=== PATIENT | male | born 1965 | race Two or more races ===

== ENCOUNTER 2024-09-30 21:40 | Emergency (ER) | payer MEDICAID, OTHER ==
[~2024-09-30] VITALS: Ht 188 cm; Wt 79.6 kg
--- NOTE | 2024-09-30 22:19 | ED.PDOC ---
History of Present Illness(SKN HPI Comments 59-year-old male who came to ER for wound check. Patient states he was bitten by a brown recluse spider 3 years ago at his right lower leg. Patient underwent skin grafting at [facility]. Nine months ago, patient accidentally tripped and fell, and he ripped out his skin graft lower leg. Noted gaping wound at his right lower leg that is being attended to by a home health care nurse. States the [facility] nurse hasnt come for the past 2 days and he has been experiencing pain at is wound site, with foul smelling discharge. Chief Complaint: Wound Check Time Seen by MD: 22:18 History of Present Illness: Nurses Notes Allergies: Coded Allergies: NO KNOWN ALLERGIES (Unverified , 09/30/24) Home Meds Active Scripts Mupirocin Calcium (Topical) (MUPIROCIN) 2 % Cre, 2 % EX BID for 20 Days, #30 CRE 3 Refills Prov:RADHA MESA MD 09/30/24 Doxycycline Hyclate (DOXYCYCLINE HYCLATE) 100 Mg Tab, 1 TAB PO BID for 10 Days, #20 TAB Prov:RADHA MESA MD 09/30/24 Information Source: Patient Mode of Arrival: Ambulatory Severity: Moderate Timing: Weeks Duration: Since onset Prehospital treatment: None Location: Extremities (right lower leg) Mechanism: Spider Occurence: Outdoors Condition of Object: Contaminated, Dirty Associated Signs and Symptoms: Redness, Swelling, Pus Past Medical History PAST MEDICAL HISTORY: Denies Surgical History: Denies all surgeries Surgical History (Other): Skin Graft right lower leg Family History Family History: Reviewed,noncontributory to illness Social History Smoker: Non-Smoker Alcohol: Denies ETOH Use Drugs: Denies Drug Use Lives In: Assisted Care Constitutional: denies: chills, diaphoresis, fatigue, fever, malaise, sweats, weakness, others EENTM: denies: blurred vision, double vision, ear bleeding, ear discharge, ear drainage, ear pain, ear ringing, eye pain, eye redness, hearing loss, mouth pain, mouth swelling, nasal discharge, nose bleeding, nose congestion, nose pain, photophobia, tearing, throat pain, throat swelling, voice changes, others Respiratory: denies: cough, hemoptysis, orthopnea, SOB at rest, shortness of breath, SOB with excertion, stridor, wheezing, others Cardiovascular: denies: chest pain, dizzy spells, diaphoresis, Dyspnea on exertion, edema, irregular heart beat, left arm pain, lightheadedness, palpitations, PND, syncope, others Gastrointestinal: denies: abdomen distended, abdominal pain, blood streaked bowels, constipated, diarrhea, dysphagia, difficulty swallowing, hematemesis, melena, nausea, poor appetite, poor fluid intake, rectal bleeding, rectal pain, vomiting, others Genitourinary: denies: burning, dysuria, flank pain, frequency, hematuria, incontinence, penile discharge, penile sore, pain, testicle pain, testicle swelling, urgency, others Neurological: denies: dizziness, fainting, headache, left sided numbness, left sided weakness, numbness, paresthesia, pre-existing deficit, right sided numbness, right sided weakness, seizure, speech problems, tingling, tremors, weakness, others Musculoskeletal: denies: back pain, gout, joint pain, joint swelling, muscle pain, muscle stiffness, neck pain, others Integumetry: reports: wounds (right lower leg); denies: bruises, change in color, change in hair/nails, dryness, laceration, lesions, lumps, rash, others Allergic/Immunocompromised: denies: Difficulty Healing, Frequent Infections, Hives, Itching, others Hematologic/Lymphatic: denies: anemia, blood clots, easy bleeding, easy bruising, swollen glands, others Endocrine: denies: excessive hunger, excessive sweating, excessive thirst, excessive urination, flushing, intolerance to cold, intolerance to heat, unexplained weight gain, unexplained weight loss, others Psychiatric: denies: anxiety, bipolar disorder, depression, hopeless, panic disorder, schizophrenia, sleepless, suicidal, others Physical Exam General Appearance: No Apparent Distress, Normal HEENT: Normal ENT Inspection, Pharynx Normal, TMs Normal Neck: Full Range of Motion, Non-Tender, Normal, Normal Inspection Respiratory: Chest Non-Tender, Lungs Clear, No Accessory Muscle Use, No Respiratory Distress, Normal Breath Sounds Cardiovascular: No Edema, No JVD, No Murmur, No Gallop, Normal Peripheral Pulses, Regular Rate/Rhythm Breast Exam: Deferred Gastrointestinal: No Organomegaly, Non Tender, No Pulsatile Mass, Normal Bowel Sounds, Soft Genitalia: Deferred Pelvic: Deferred Rectal: Deferred Extremities: No calf tenderness, Normal capillary refill, Normal inspection, Normal range of motion, Non-tender, No pedal edema, Other (open wound right lower extremity, foul smelling with discharge) Musculoskeletal : Apperance: Normal Neurologic: Alert, magnetometer operator II-XII nml as Tested, No Motor Deficits, Normal Affect, Normal Mood, No Sensory Deficits Cerebellar Function: Normal Reflexes: Normal Skin: Dry, Normal Color, Warm Lymphatic: No Adenopathy Was a procedure done? Was a procedure done?: No Differential Diagnosis (INTG) Differential Diagnosis: Cellulitis, Hematoma, Insect Envenomation Abscess: Abscess, Bacteremia, Cellulitis X-Ray, Labs, Meds, VS Vital Signs Date Time Temp Pulse Resp B/P (MAP) Pulse Ox O2 Delivery O2 Flow Rate FiO2 10/01/24 00:24 98.6 109 19 152/86 (108) 97 98.6 09/30/24 21:57 99.3 95 16 135/88 (104) 98 99.3 Lab Test 09/30/24 22:30 Range/Units White Blood Count 10.3 4.4-10.8 10^3/uL Red Blood Count 5.59 4.5-5.90 10^6/uL Hemoglobin 16.9 13.5-17.5 g/dL Hematocrit 50.4 41.0-53.0 % Mean Corpuscular Volume 90.2 80.0-100.0 fL Mean Corpuscular Hemoglobin 30.2 28.0-32.0 pg Mean Corpuscular Hemoglobin Concent 33.5 32.0-36.0 g/dL Red Cell Distribution Width 14.0 11.8-14.3 % Platelet Count 285 140-450 10^3/uL Mean Platelet Volume 8.4 6.9-10.8 fL Neutrophils (%) (Auto) 63.9 37.0-80.0 % Lymphocytes (%) (Auto) 23.8 10.0-50.0 % Monocytes (%) (Auto) 9.5 0.0-12.0 % Eosinophils (%) (Auto) 2.3 0.0-7.0 % Basophils (%) (Auto) 0.5 0.0-2.0 % Neutrophils # (Auto) 6.6 1.6-8.6 10 ^3/uL Lymphocytes # (Auto) 2.5 0.4-5.4 10 ^3/uL Monocytes # (Auto) 1.0 0-1.3 10 ^3/uL Eosinophils # (Auto) 0.2 0-0.8 10 ^3/uL Basophils # (Auto) 0 0-0.2 10 ^3/uL Nucleated Red Blood Cells 0.0 % Sodium Level 137 136-145 mmol/L Potassium Level 4.0 3.5-5.1 mmol/L Chloride Level 108 H 98-107 mmol/L Carbon Dioxide Level 20 20-31 mmol/L Anion Gap 9 5-15 Blood Urea Nitrogen 13 9-23 mg/dL Creatinine 0.90 0.700-1.30 mg/dL Glomerular Filtration Rate Calc 99 >90 mL/min BUN/Creatinine Ratio 14.4 10.0-20.0 Serum Glucose 110 H 74-106 mg/dL Lactic Acid Level 1.5 0.4-2.0 mmol/L Calcium Level 10.2 8.7-10.4 mg/dL Total Bilirubin 0.4 0.2-1.0 mg/dL Aspartate Amino Transferase (AST) 22 13-40 U/L Alanine Aminotransferase (ALT) 33 7-40 U/L Alkaline Phosphatase 125 H 46-116 U/L Total Protein 8.2 5.7-8.2 g/dL Albumin 4.9 H 3.2-4.8 g/dL Current Medications Medications (Trade) Dose Ordered Sig/Bro Route Start Time Stop Time Status Last Admin Cefazolin Sodium/ Dextrose 50 ml @ 50 mls/hr ONCE ONCE IV 09/30/24 22:15 09/30/24 23:14 DC 09/30/24 23:50 PROCEDURE(s): RTBFB - R TIB FIB XRAY CLINICAL INDICATION: open wound / infection right lower leg TECHNIQUE: XY R TIB FIB XRAY Comparison: None FINDINGS: No osseous or joint abnormality identified with no fracture or dislocation. IMPRESSION: No abnormality demonstrated. Time of 1ST Reevaluation: 22:09 Reevaluation 1ST: Unchanged Patient Education/Counseling: Diagnosis, Treatment Family Education/Counseling: No Family Present Departure 1 Departure Time of Disposition: 00:10 Impression: Primary Impression: Cellulitis Additional Impression: Ulcer of right lower leg Disposition: HOME / SELF CARE / HOMELESS Condition: Stable e-Prescriptions Mupirocin Calcium (Topical) (MUPIROCIN) 2 % Cre 2 % EX BID for 20 Days, #30 CRE 3 Refills Prov: RADHA MESA MD 09/30/24 Doxycycline Hyclate (DOXYCYCLINE HYCLATE) 100 Mg Tab 1 TAB PO BID for 10 Days, #20 TAB Prov: RADHA MESA MD 09/30/24 Discharged With: Self Critical Care Note Critical Care Time?: No Stability Stability form required: No Heart Score Heart Score: Heart Score Response (Comments) Value History N/A 0 EKG N/A 0 Age N/A 0 Risk Factors N/A 0 Troponin N/A 0 Total 0 I personally scribed for RADHA MESA MD ([email or web address]) on 09/30/24 at 22:19. Electronically submitted by Joselito Lawson ([email or web address]). I personally scribed for RADHA MESA MD ([email or web address]) on 09/30/24 at 23:02. Electronically submitted by Joselito Lawson ([email or web address]). RADHA MESA MD Sep 30, 2024 22:19
--- NOTE | 2024-09-30 22:36 | DVH ---
CLINICAL INDICATION: open wound / infection right lower leg TECHNIQUE: XY R TIB FIB XRAY Comparison: None FINDINGS: No osseous or joint abnormality identified with no fracture or dislocation. IMPRESSION: No abnormality demonstrated.
[2024-09-30 22:57] LABS: Alanine Aminotransferase 33 U/L (7-40); Anion Gap 9 (5-15); Aspartate Aminotransferase 22 U/L (13-40); BUN/Creatinine Ratio 14.4 (10.0-20.0); Blood Urea Nitrogen 13 mg/dL (9-23); Calcium 10.2 mg/dL (8.7-10.4); Carbon Dioxide 20 mmol/L (20-31); Sodium 137 mmol/L (136-145); Total Protein 8.2 g/dL (5.7-8.2)
[2024-09-30 22:58] LABS: Bilirubin, Total 0.4 mg/dL (0.2-1.0)
[2024-09-30 23:00] LABS: Albumin 4.9 g/dL (3.2-4.8); Alkaline Phosphatase 125 U/L (46-116); Chloride 108 mmol/L (98-107); Glucose 110 mg/dL (74-106)
[2024-09-30 23:05] LABS: Basophils # (auto) 0 10 ^3/uL (0-0.2); Basophils % (auto) 0.5 % (0.0-2.0); Eosinophils # (auto) 0.2 10 ^3/uL (0-0.8); Eosinophils % (auto) 2.3 % (0.0-7.0); Hematocrit 50.4 % (41.0-53.0); Hemoglobin 16.9 g/dL (13.5-17.5); Lymphocytes # (auto) 2.5 10 ^3/uL (0.4-5.4); Lymphocytes % (auto) 23.8 % (10.0-50.0); Mean Corpuscular Hemoglobin 30.2 pg (28.0-32.0); Mean Corpuscular Hgb Conc. 33.5 g/dL (32.0-36.0); Mean Corpuscular Volume 90.2 fL (80.0-100.0); Monocytes % (auto) 9.5 % (0.0-12.0); Neutrophils # (auto) 6.6 10 ^3/uL (1.6-8.6); Neutrophils % (auto) 63.9 % (37.0-80.0); Platelet Count (auto) 285 10^3/uL (140-450); Red Blood Cells 5.59 10^6/uL (4.5-5.90); White Blood Cell 10.3 10^3/uL (4.4-10.8)
[2024-09-30] MEDS ORDERED: DOXY-286 PO (23:41)
[2024-09-30] MEDS ORDERED: MUPI2CRE17 EX (23:41)
[2024-09-30] MEDS: ceFAZolin 2 GM/D5W50ml 50 ML IV ONE (23:50)
[2024-10-01 00:24] VITALS: BP 152/86; PULSE 109; RESP 19; TEMP 98.6; O2SAT 97
== END 2024-10-01 00:49 | disposition home or self-care (01) ==
LOC: ER 21:45
DX: L03.115 Cellulitis of right lower limb (principal); L97.819 Non-pressure chronic ulcer of other part of right lower leg with unspecified severity; Z98.890 Other specified postprocedural states
CPT/HCPCS: 36415; 73590; 80053; 83605; 85025; 87040; 96365; 99284; J0690

== ENCOUNTER 2025-04-22 19:47 | Inpatient (IN) | payer MEDICAID ==
[~2025-04-22] VITALS: Ht 188 cm; Wt 68.2 kg
[~2025-04-22 19:47] MED LIST: DOXY-286 PO; MUPI2CRE17 EX
--- NOTE | 2025-04-22 21:20 | ED.PDOC ---
History of Present Illness(SKN HPI Comments Pt presents with cc of wound to his right ankle. Pt reports he has had the wound for 3 years, but over brendon past 1 week the wound has opened up and is draining. Patient states did have a wound nurse follow up proximally three months ago however he is not living at that location anymore Pt denies any n/v/f. Denies any significant medical history Chief Complaint: Wound Check Time Seen by MD: 20:01 History of Present Illness: Nurses Notes, Medications, Allergies Allergies: Coded Allergies: NO KNOWN ALLERGIES (Unverified , 09/30/24) Home Meds Active Scripts Mupirocin Calcium (Topical) (MUPIROCIN) 2 % Cre, 2 % EX BID for 20 Days, #30 CRE 3 Refills Prov:RADHA MESA MD 09/30/24 Doxycycline Hyclate (DOXYCYCLINE HYCLATE) 100 Mg Tab, 1 TAB PO BID for 10 Days, #20 TAB Prov:RADHA MESA MD 09/30/24 Information Source: Patient Mode of Arrival: Ambulatory Past Medical History PAST MEDICAL HISTORY: Denies Surgical History: Denies all surgeries Family History Family History: Reviewed,noncontributory to illness Social History Smoker: Non-Smoker Alcohol: Denies ETOH Use Drugs: Denies Drug Use Lives In: Assisted Care All Other Systems: Reviewed and Negative (See HPI) Physical Exam General Appearance: No Apparent Distress, Normal HEENT: Pharynx Normal Neck: Full Range of Motion, Non-Tender Respiratory: Lungs Clear, No Respiratory Distress, Normal Breath Sounds Cardiovascular: No Edema, No JVD, No Murmur, No Gallop, Normal Peripheral Pulses, Regular Rate/Rhythm Breast Exam: Deferred Gastrointestinal: No Organomegaly, Non Tender, No Pulsatile Mass, Normal Bowel Sounds, Soft Genitalia: Deferred Pelvic: Deferred Rectal: Deferred Extremities: Normal capillary refill, Pedal edema (Nonpitting right foot) Musculoskeletal : Apperance: Normal Neurologic: Alert, No Motor Deficits, Normal Affect, Normal Mood, No Sensory Deficits Cerebellar Function: Normal Reflexes: NOT DONE Skin: Dry, Normal Color, Warm, Wounds (Approximate 1.5 in x 1.5 in ulcerated wound with green drainage and fall odor surrounding erythema and edema strength sensory and motion intact positive pedal pulse) Lymphatic: No Adenopathy Was a procedure done? Was a procedure done?: No Differential Diagnosis (INTG) Differential Diagnosis: Cellulitis, Puncture Wound Differential Diagnosis: Abscess X-Ray, Labs, Meds, VS Vital Signs Date Time Temp Pulse Resp B/P (MAP) Pulse Ox O2 Delivery O2 Flow Rate FiO2 04/22/25 23:49 98.4 90 18 138/82 (100) 95 98.4 04/22/25 22:59 98.6 91 21 147/96 (113) 96 98.6 04/22/25 22:59 91 21 96 Room Air* 0 21 04/22/25 19:48 98.0 98 18 140/110 95 98.0 Lab Test 04/22/25 22:25 04/22/25 21:35 Range/Units Lactic Acid Level 2.8 *H 0.4-2.0 mmol/L White Blood Count 8.4 4.4-10.8 10^3/uL Red Blood Count 5.20 4.5-5.90 10^6/uL Hemoglobin 15.5 13.5-17.5 g/dL Hematocrit 46.2 41.0-53.0 % Mean Corpuscular Volume 88.9 80.0-100.0 fL Mean Corpuscular Hemoglobin 29.8 28.0-32.0 pg Mean Corpuscular Hemoglobin Concent 33.5 32.0-36.0 g/dL Red Cell Distribution Width 15.1 H 11.8-14.3 % Platelet Count 280 140-450 10^3/uL Mean Platelet Volume 7.6 6.9-10.8 fL Neutrophils (%) (Auto) 71.3 37.0-80.0 % Lymphocytes (%) (Auto) 14.8 10.0-50.0 % Monocytes (%) (Auto) 12.0 0.0-12.0 % Eosinophils (%) (Auto) 1.3 0.0-7.0 % Basophils (%) (Auto) 0.6 0.0-2.0 % Neutrophils # (Auto) 6.0 1.6-8.6 10 ^3/uL Lymphocytes # (Auto) 1.2 0.4-5.4 10 ^3/uL Monocytes # (Auto) 1.0 0-1.3 10 ^3/uL Eosinophils # (Auto) 0.1 0-0.8 10 ^3/uL Basophils # (Auto) 0 0-0.2 10 ^3/uL Nucleated Red Blood Cells 0.1 % D-Dimer, Quantitative 6.72 H 0.0-0.49 mg/L FEU Sodium Level 141 136-145 mmol/L Potassium Level 4.3 3.5-5.1 mmol/L Chloride Level 103 98-107 mmol/L Carbon Dioxide Level 28 20-31 mmol/L Anion Gap 10 5-15 Blood Urea Nitrogen 8 L 9-23 mg/dL Creatinine 0.75 0.700-1.30 mg/dL Glomerular Filtration Rate Calc 105 >90 mL/min BUN/Creatinine Ratio 10.7 10.0-20.0 Serum Glucose 97 74-106 mg/dL Calcium Level 9.8 8.7-10.4 mg/dL Magnesium Level 2.0 1.6-2.6 mg/dL Total Bilirubin 0.3 0.2-1.0 mg/dL Aspartate Amino Transferase (AST) 22 13-40 U/L Alanine Aminotransferase (ALT) 19 7-40 U/L Alkaline Phosphatase 91 46-116 U/L C-Reactive Protein High Sensitivity 8.67 H <1.0 mg/dL Total Protein 7.6 5.7-8.2 g/dL Albumin 4.2 3.2-4.8 g/dL Current Medications Medications (Trade) Dose Ordered Sig/Bro Route Start Time Stop Time Status Last Admin Vancomycin HCl 250 ml @ 250 mls/hr ONCE ONCE IV 04/22/25 21:30 04/22/25 22:29 DC 04/22/25 23:58 Oxycodone/ Acetaminophen (Percocet 5/ 325MG Tablet) 2 tab ONCE ONCE PO 04/22/25 21:30 04/22/25 21:31 DC 04/22/25 22:35 Clindamycin Phosphate 50 ml @ 50 mls/hr ONCE ONCE IV 04/22/25 22:15 04/22/25 23:14 DC 04/22/25 22:49 Sodium Chloride 1,000 ml @ 1,000 mls/hr Q1H ONCE IV 04/22/25 22:30 04/22/25 23:29 DC 04/22/25 22:49 Ceftriaxone Sodium 50 ml @ 100 mls/hr ONCE ONCE IV 04/22/25 23:45 04/23/25 00:17 DC 04/23/25 01:02 Clopidogrel Bisulfate (Plavix) 75 mg ONCE ONCE PO 04/22/25 23:45 04/23/25 00:18 DC 04/23/25 00:47 Losartan Potassium (Cozaar Tablet) 25 mg ONCE ONCE PO 04/22/25 23:45 04/23/25 00:18 DC 04/23/25 00:48 X-Ray, Labs, Meds, VS Comment Patient placed for admission for IV antibiotics and wound care. Time of 1ST Reevaluation: 20:01 Reevaluation 1ST: Unchanged Time of 2ND Reevaluation: 21:20 Reevaluation 2ND: Unchanged Patient Education/Counseling: Diagnosis, Treatment, Need For Follow Up Family Education/Counseling: No Family Present SEPSIS Sepsis Screen Date sepsis recognized/suspect: Apr 22, 2025 Time Sepsis recognized/suspect: 1950 Recent Procedure: No On Antibiotic Therapy: No Respiratory Rate >20: No Heart Rate >90: Yes Temp<36 C (96.8 F) or >38.3 C: No SBP <90 or MAP <65 mmHG: No New Acute Mental Status Change: No Is the patient on CPAP, BIPAP,: No Physician Orders Heplock Iv (04/22/25 ) Blood Culture (04/22/25 21:50) * Wound Consult (04/22/25 ) Wound Culture W/ Gs (04/22/25 22:19) Code Status (04/22/25 23:38) Hydrocodone-Acet 5/325mg Tab ([place] 5/32 (04/22/25 23:45) Ondansetron Hcl (Zofran) (04/22/25 23:45) Complete Blood Count (04/23/25 04:00) Comprehensive Metabolic Panel (04/23/25 04:00) Cardiac Diet-2gna,Lofat,Lochol (04/23/25 Breakfast) Echo 2d Mode Cardiac Dop (04/22/25 23:38) Condition: Unstable (04/22/25 23:38) Acetaminophen Tablet (Tylenol Tablet) (04/22/25 23:45) Enoxaparin Sodium (Lovenox) (04/23/25 10:00) Ct R Foot Wo Contrast (04/22/25 23:38) Ceftriaxone 1gm/50ml (Rocephin) (04/23/25 09:00) Vancomycin Per Pharmacy (04/22/25 23:45) Mrsa Screen (04/22/25 23:38) Clopidogrel Bisulfate (Plavix) (04/23/25 10:00) Losartan Tablet (Cozaar Tablet) (04/23/25 10:00) Electrocardigram (04/22/25 23:38) Urinalysis (04/22/25 23:38) Drug Screen (04/22/25 23:38) Chest Xray 1 View (04/22/25 23:38) Lactic Acid W/ Reflex Order (04/23/25 04:00) Vital Signs Date Time Temp Pulse Resp B/P (MAP) Pulse Ox O2 Delivery O2 Flow Rate FiO2 04/22/25 23:49 98.4 90 18 138/82 (100) 95 98.4 04/22/25 22:59 98.6 91 21 147/96 (113) 96 98.6 04/22/25 22:59 91 21 96 Room Air* 0 21 04/22/25 19:48 98.0 98 18 140/110 95 98.0 Laboratory Tests Test 04/22/25 21:35 04/22/25 22:25 White Blood Count 8.4 10^3/uL (4.4-10.8) Lactic Acid Level 2.8 mmol/L (0.4-2.0) *H Medications Medications Dose Ordered Sig/Bro Route Start Time Stop Time Status Last Admin Dose Admin Ceftriaxone Sodium 50 ml @ 100 mls/hr ONCE ONCE IV 04/22/25 23:45 04/23/25 00:17 DC 04/23/25 01:02 Clindamycin Phosphate 50 ml @ 50 mls/hr ONCE ONCE IV 04/22/25 22:15 04/22/25 23:14 DC 04/22/25 22:49 Clopidogrel Bisulfate 75 mg ONCE ONCE PO 04/22/25 23:45 04/23/25 00:18 DC 04/23/25 00:47 Losartan Potassium 25 mg ONCE ONCE PO 04/22/25 23:45 04/23/25 00:18 DC 04/23/25 00:48 Oxycodone/ Acetaminophen 2 tab ONCE ONCE PO 04/22/25 21:30 04/22/25 21:31 DC 04/22/25 22:35 Sodium Chloride 1,000 ml @ 1,000 mls/hr Q1H ONCE IV 04/22/25 22:30 04/22/25 23:29 DC 04/22/25 22:49 Vancomycin HCl 250 ml @ 250 mls/hr ONCE ONCE IV 04/22/25 21:30 04/22/25 22:29 DC 04/22/25 23:58 Departure 1 Departure Time of Disposition: 21:45 Impression: Primary Impression: Ulcer of right lower leg Qualified Codes: L97.912 - Non-pressure chronic ulcer of unspecified part of right lower leg with fat layer exposed Disposition: ADMITTED INPATIENT Condition: Guarded Discharged With: Self Critical Care Note Critical Care Time?: No Stability Stability form required: WAQAR Melchor Apr 22, 2025 21:20
[2025-04-22 21:59] LABS: Hematocrit 46.2 % (41.0-53.0); Hemoglobin 15.5 g/dL (13.5-17.5); Mean Corpuscular Hemoglobin 29.8 pg (28.0-32.0); Mean Corpuscular Volume 88.9 fL (80.0-100.0); Nucleated Red Blood Cells % 0.1 %
[2025-04-22 22:15] LABS: Albumin 4.2 g/dL (3.2-4.8); Alkaline Phosphatase 91 U/L (46-116); Anion Gap 10 (5-15); BUN/Creatinine Ratio 10.7 (10.0-20.0); Bilirubin, Total 0.3 mg/dL (0.2-1.0); Calcium 9.8 mg/dL (8.7-10.4); Carbon Dioxide 28 mmol/L (20-31); Chloride 103 mmol/L (98-107); Glucose 97 mg/dL (74-106); Potassium 4.3 mmol/L (3.5-5.1); Sodium 141 mmol/L (136-145); Total Protein 7.6 g/dL (5.7-8.2)
[2025-04-22] MEDS ORDERED: SODIUM CHLORIDE 0.9% 2,450 ML IV ONE (22:15)
[2025-04-22 22:23] LABS: Blood Urea Nitrogen 8 mg/dL (9-23)
[2025-04-22 22:35] LABS: Alanine Aminotransferase 19 U/L (7-40)
[2025-04-22] MEDS: OXYCODONE W/ ACETAMINOPHEN 5/325MG TABLET PO ONE (22:35)
[2025-04-22] MEDS: SODIUM CHLORIDE 0.9% 1,000 ML IV ONE (22:49)
[2025-04-22] MEDS: CLINDAMYCIN 600MG IV 50 ML IV ONE (22:49)
[2025-04-22 22:59] VITALS: PULSE 91; RESP 20; RESP 21; O2SAT 96
[2025-04-22 23:29] LABS: Lactic Acid w/Reflex 2.8 mmol/L (0.4-2.0)
[2025-04-22] MEDS ORDERED: ONDANSETRON HCL 4 MG/2 ML VIAL IV PRN (23:45)
[2025-04-22] MEDS ORDERED: ACETAMINOPHEN 325 MG TAB PO PRN (23:45)
[2025-04-22] MEDS ORDERED: VANCOMYCIN PER PHARMACY 0 MG IV SCH (23:45)
--- NOTE | 2025-04-22 23:51 | DVHHPRES ---
History of Present Illness Resident Creating Document: BRYSON WADSWORTH RESIDENT History of Present Illness 59-year-old male with a PMH of hypertension, CHF, DVT, 1 TN event with stent placed, PAD and surgical history of 4 surgeries in the left knee, left shoulder rotator cuff surgery, has come in with the chief complaints of draining right ankle wound which is painful. Patient reports that 3 years ago, he was bitten by a brown recluse spider on his right ankle which never healed properly. He reports that on the same leg he fell down and hurt himself with a metal last year, after which the wound has never gone away. 7 days ago he noted his right ankle had begun to swell and the scab was cracking, which burst and drained foul-smelling yellow liquid. The pain in his ankle has been increasing, throbbing, 10/10 in intensity today, radiating to the knee, with no aggravating or relieving factors. Due to the excess amount of drainage and pain, patient decided to visit the ER today. On admission, patient was septic with pulse 98, RR 21, temp 98, BP 140/110 mmHg, SpO2 96 % on ra. Labs show lactic acid of 2.8. We are admitting the patient for further workup and management. PMH: As stated above PSH: As stated above Family history: Reviewed, noncontributory with the management of this case Social history: Recently moved to [place], lives with daughter -Smoking: cigarettes 1 pack/day for 44 years, has decreased to 2-5c/day recently -Alcohol: used to be a heavy drinker(one 5th of a lit rum every alternate day- quit 20 years ago); drinks occasionally these days(few shots of vodka, last intake 5 days ago) -Drugs: smokes marijuana daily until he gets high; used to take methamphetamine- quit 3 years ago PCP: Does not have one Allergies: None Code status: Full code Review of Systems Constitutional: No: Fever, Chills, Sweats, Weakness, Malaise, Other Eyes: No: Pain, Vision change, Conjunctivae inflammation, Eyelid inflammation, Other, Redness ENT: No: Ear pain, Ear discharge, Nose pain, Nose discharge, Nose congestion, Mouth pain, Mouth swelling, Throat pain, Throat swelling, Other Respiratory: No: Cough, Dry, Shortness of breath, SOB with excertion, Wheezing, Hemoptysis, Pleuritic Pain, Sputum, Wheezing, Other Cardiovascular: No: Chest Pain, Palpitations, Orthopnea, Paroxysmal Noc. Dyspnea, Edema, Lt Headedness, Other Gastrointestinal: No: Nausea, Vomiting, Abdominal Pain, Diarrhea, Constipation, Melena, Hematochezia, Other Genitourinary: No Dysuria, No Frequency, No Incontinence, No Hematuria, No Retention, No Other Musculoskeletal: other (Right ankle swelling and draining ulcer), foot pain; No: neck pain, shoulder pain, arm pain, back pain, hand pain, leg pain Skin: No: Rash, Lesions, Jaundice, Bruising, Other Neurological: No: Weakness, Numbness, Incoordination, Change in speech, Confusion, Seizures, Other Allergies: Coded Allergies: NO KNOWN ALLERGIES (Unverified , 09/30/24) Medications Current Medications Medications Dose Ordered Sig/Bro Route Start Time Stop Time Status Last Admin Dose Admin Acetaminophen/ Hydrocodone Bitart 1 tab Q4HP PRN PO 04/22/25 23:45 UNV Ondansetron HCl 4 mg Q4HP PRN IV 04/22/25 23:45 UNV Acetaminophen 650 mg Q6HP PRN PO 04/22/25 23:45 UNV Enoxaparin Sodium 70 mg Q12HR SC 04/23/25 10:00 UNV Ceftriaxone Sodium 50 ml @ 100 mls/hr DAILY@09 IV 04/23/25 09:00 UNV Vancomycin HCl 0 ml @ 0 mls/hr PER PHARMACY IV 04/22/25 23:45 UNV Clopidogrel Bisulfate 75 mg DAILY PO 04/23/25 10:00 UNV Losartan Potassium 25 mg DAILY PO 04/23/25 10:00 UNV Exam Vital Signs Vital Signs Date Time Temp Pulse Resp B/P (MAP) Pulse Ox O2 Delivery O2 Flow Rate FiO2 04/22/25 22:59 98.6 91 21 147/96 (113) 96 98.6 04/22/25 22:59 Room Air* 0 21 Exam General Appearance: Alert, Oriented X3, Cooperative, Not in acute distress HEENT: Atraumatic, Mucous membranes moist/pink Respiratory: Clear to auscultation, Normal air movement, No added sounds Cardiovascular: Regular rate, Normal S1, Normal S2, No murmurs Abdominal: Active bowel sounds, Soft, no distention, no tenderness Extremities: No edema, Normal pulses, No tenderness/swelling Skin: No Significant rash, except past surgical scars, presence of stage 3 right ankle ulcer, draining yellow purulent fluid, erythema of the surrounding scale and cellulitis, feeble pulse of dorsalis pedis in both feet, cold to touch B/l Neuro: Normal speech, sensorimotor deficits none Psych/Mental Status: Mental status NL, Mood NL Labs/Xrays Labs Test 04/22/25 22:25 04/22/25 21:35 Range/Units Lactic Acid Level 2.8 *H 0.4-2.0 mmol/L White Blood Count 8.4 4.4-10.8 10^3/uL Red Blood Count 5.20 4.5-5.90 10^6/uL Hemoglobin 15.5 13.5-17.5 g/dL Hematocrit 46.2 41.0-53.0 % Mean Corpuscular Volume 88.9 80.0-100.0 fL Mean Corpuscular Hemoglobin 29.8 28.0-32.0 pg Mean Corpuscular Hemoglobin Concent 33.5 32.0-36.0 g/dL Red Cell Distribution Width 15.1 H 11.8-14.3 % Platelet Count 280 140-450 10^3/uL Mean Platelet Volume 7.6 6.9-10.8 fL Neutrophils (%) (Auto) 71.3 37.0-80.0 % Lymphocytes (%) (Auto) 14.8 10.0-50.0 % Monocytes (%) (Auto) 12.0 0.0-12.0 % Eosinophils (%) (Auto) 1.3 0.0-7.0 % Basophils (%) (Auto) 0.6 0.0-2.0 % Neutrophils # (Auto) 6.0 1.6-8.6 10 ^3/uL Lymphocytes # (Auto) 1.2 0.4-5.4 10 ^3/uL Monocytes # (Auto) 1.0 0-1.3 10 ^3/uL Eosinophils # (Auto) 0.1 0-0.8 10 ^3/uL Basophils # (Auto) 0 0-0.2 10 ^3/uL Nucleated Red Blood Cells 0.1 % Sodium Level 141 136-145 mmol/L Potassium Level 4.3 3.5-5.1 mmol/L Chloride Level 103 98-107 mmol/L Carbon Dioxide Level 28 20-31 mmol/L Anion Gap 10 5-15 Blood Urea Nitrogen 8 L 9-23 mg/dL Creatinine 0.75 0.700-1.30 mg/dL Glomerular Filtration Rate Calc 105 >90 mL/min BUN/Creatinine Ratio 10.7 10.0-20.0 Serum Glucose 97 74-106 mg/dL Calcium Level 9.8 8.7-10.4 mg/dL Total Bilirubin 0.3 0.2-1.0 mg/dL Aspartate Amino Transferase (AST) 22 13-40 U/L Alanine Aminotransferase (ALT) 19 7-40 U/L Alkaline Phosphatase 91 46-116 U/L Total Protein 7.6 5.7-8.2 g/dL Albumin 4.2 3.2-4.8 g/dL SEPSIS Sepsis Screen Date sepsis recognized/suspect: Apr 22, 2025 Time Sepsis recognized/suspect: 2258 Recent Procedure: No On Antibiotic Therapy: Yes Respiratory Rate >20: Yes Heart Rate >90: Yes Temp<36 C (96.8 F) or >38.3 C: No SBP <90 or MAP <65 mmHG: No New Acute Mental Status Change: No Is the patient on CPAP, BIPAP,: No Physician Orders Heplock Iv (04/22/25 ) Blood Culture (04/22/25 21:50) * Wound Consult (04/22/25 ) Wound Culture W/ Gs (04/22/25 22:19) Code Status (04/22/25 23:38) Hydrocodone-Acet 5/325mg Tab ([place] 5/32 (04/22/25 23:45) Ondansetron Hcl (Zofran) (04/22/25 23:45) Complete Blood Count (04/23/25 04:00) Comprehensive Metabolic Panel (04/23/25 04:00) Cardiac Diet-2gna,Lofat,Lochol (04/23/25 Breakfast) Echo 2d Mode Cardiac Dop (04/22/25 23:38) Condition: Unstable (04/22/25 23:38) Acetaminophen Tablet (Tylenol Tablet) (04/22/25 23:45) Enoxaparin Sodium (Lovenox) (04/23/25 10:00) B-Type Natriuretic Peptide (04/22/25 23:38) D-Dimer (04/22/25 23:38) Ct R Foot Wo Contrast (04/22/25 23:38) Ceftriaxone 1gm/50ml (Rocephin) (04/23/25 09:00) Ceftriaxone 1gm/50ml (Rocephin) (04/22/25 23:45) Vancomycin Per Pharmacy (04/22/25 23:45) Mrsa Screen (04/22/25 23:38) Clopidogrel Bisulfate (Plavix) (04/22/25 23:45) Clopidogrel Bisulfate (Plavix) (04/23/25 10:00) Losartan Tablet (Cozaar Tablet) (04/22/25 23:45) Losartan Tablet (Cozaar Tablet) (04/23/25 10:00) Electrocardigram (04/22/25 23:38) Erythrocyte Sedimentation Rate (04/22/25 23:38) C-Reactive Protein (04/22/25 23:38) Urinalysis (04/22/25 23:38) Drug Screen (04/22/25 23:38) Chest Xray 1 View (04/22/25 23:38) Lactic Acid W/ Reflex Order (04/23/25 04:00) Magnesium (04/22/25 23:38) Admit (04/22/25 23:50) Vital Signs Date Time Temp Pulse Resp B/P (MAP) Pulse Ox O2 Delivery O2 Flow Rate FiO2 04/22/25 22:59 98.6 91 21 147/96 (113) 96 98.6 04/22/25 22:59 91 21 96 Room Air* 0 21 04/22/25 19:48 98.0 98 18 140/110 95 98.0 Laboratory Tests Test 04/22/25 21:35 04/22/25 22:25 White Blood Count 8.4 10^3/uL (4.4-10.8) Lactic Acid Level 2.8 mmol/L (0.4-2.0) *H Medications Medications Dose Ordered Sig/Bro Route Start Time Stop Time Status Last Admin Dose Admin Clindamycin Phosphate 50 ml @ 50 mls/hr ONCE ONCE IV 04/22/25 22:15 04/22/25 23:14 DC 04/22/25 22:49 50 MLS/HR Oxycodone/ Acetaminophen 2 tab ONCE ONCE PO 04/22/25 21:30 11/14/25 21:31 DC 04/22/25 22:35 2 TAB Sodium Chloride 1,000 ml @ 1,000 mls/hr Q1H ONCE IV 04/22/25 22:30 04/22/25 23:29 DC 04/22/25 22:49 1,000 MLS/HR Assessment/Plan Assessment/Plan #Sepsis due to draining right ankle ulcer #Right ankle cellulitis #Intractable foot pain due to above - CRP 8.67, ESR 43 - ceftriaxone 1 g IV daily - vancomycin per pharmacy - wound consult - wound culture - blood culture - lactic acid 2.8 - IV NS 0.9% - MRSA - CT of right foot without contrast shows: no evidence of right foot or ankle osteomyelitis, Broad area of skin/superficial subcutaneous irregularity overlying the distal fibula and lateral malleolus, with underlying subcutaneous stranding and confluence soft tissue density. No obvious fluid collection. Edema extends along the midfoot and forefoot, predominantly dorsally. 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 daily #Left lower extremity DVT #History of DVT #History of peripheral artery disease - D-dimer 6.72 - bilateral lower extremity venous Doppler shows: Findings are concerning for nonocclusive thrombus in the distal femoral vein popliteal vein. - patient takes Eliquis at home - therapeutic Lovenox 1 mg/ kg b.i.d. daily - Arterial doppler of B/L lower extremities #Polysubstance abuse ( nicotine, marijuana) - patient counseled extensively regarding cessation of cigarette and marijuana smoking and continued cessation of methamphetamine for over 8 minutes DVT prophylaxis: therapeutic Lovenox 1 mg/kg b.i.d. daily Diet: cardiac diet Goals of care discussed with the patient for more than 27 minutes: Full code status Case discussed with Dr. Bajwa, patient and nurse. Plan discussed with: Patient My Orders Orders - BRYSON WADSWORTH RESIDENT Procedure Category Date Status Time Code Status CODE 04/22/25 Transmitted 23:38 Hydrocodone-Acet PHA 04/22/25 Logged 5/325mg Tab ([place] 23:45 Ondansetron Hcl PHA 04/22/25 Logged (Zofran) 23:45 Complete Blood Count LAB 04/23/25 Verified 04:00 Comprehensive LAB 04/23/25 Verified Metabolic Panel 04:00 Cardiac DIET 04/23/25 Transmitted Diet-2gna,Lofat,Lochol Breakfast Echo 2d Mode Cardiac US 04/22/25 Logged DOP 23:38 Condition: Unstable RUDY 04/22/25 In Process 23:38 Acetaminophen Tablet PHA 04/22/25 Logged (Tylenol Tablet) 23:45 Enoxaparin Sodium PHA 04/23/25 Logged (Lovenox) 10:00 B-Type Natriuretic LAB 04/22/25 Logged Peptide 23:38 D-Dimer LAB 04/22/25 Logged 23:38 Ct R Foot Wo Contrast CT 04/22/25 Logged 23:38 Ceftriaxone 1gm/50ml PHA 04/23/25 Logged (Rocephin) 09:00 Ceftriaxone 1gm/50ml PHA 04/22/25 Logged (Rocephin) 23:45 Vancomycin Per PHA 04/22/25 Logged Pharmacy 23:45 Mrsa Screen NATASHA 04/22/25 Logged 23:38 Clopidogrel Bisulfate PHA 04/22/25 Transmitted (Plavix) 23:45 Clopidogrel Bisulfate PHA 04/23/25 Transmitted (Plavix) 10:00 Losartan Tablet PHA 04/22/25 Transmitted (Cozaar Tablet) 23:45 Losartan Tablet PHA 04/23/25 Transmitted (Cozaar Tablet) 10:00 Electrocardigram EKG 04/22/25 Logged 23:38 Erythrocyte LAB 04/22/25 Logged Sedimentation Rate 23:38 C-Reactive Protein LAB 04/22/25 Logged 23:38 Urinalysis LAB 04/22/25 Logged 23:38 Drug Screen LAB 04/22/25 Logged 23:38 Chest Xray 1 View XY 04/22/25 Logged 23:38 Lactic Acid W/ Reflex LAB 04/23/25 Verified Order 04:00 Magnesium LAB 04/22/25 Logged 23:38 Admit ADMIT 04/22/25 Transmitted 23:50 Date of Service: Apr 23, 2025 Billing Provider: CECI BAJWA MD Common Visit Codes: [id number] INP/OBS CARE (HIGH) Secondary Visit Codes: [id number] CARE PLAN 30 MINUTES BRYSON WADSWORTH RESIDENT Apr 22, 2025 23:51 DENISHA ALVARADO RESIDENT Apr 23, 2025 06:18
[2025-04-22] MEDS: VANCOMYCIN 1GM/250ML KIT 250 ML IV ONE (23:58)
[2025-04-23 00:16] LABS: Magnesium 2.0 mg/dL (1.6-2.6)
--- NOTE | 2025-04-23 00:33 | DVH ---
CHEST RADIOGRAPH Indication: sob Technique: 1 view Comparison: None FINDINGS: Lines and Tubes: None. Lungs/Pleura: No focal consolidation, pleural effusion or pneumothorax. Nodular lateral opacities in the mid to lower lungs favored to represent nipple shadows. Cardiomediastinum: Unremarkable. Other: No acute osseous abnormality. Left humeral head surgical anchor. IMPRESSION: 1. No acute cardiopulmonary abnormality.
[2025-04-23] MEDS: CLOPIDOGREL BISULFATE 75 MG TAB PO ONE (00:47)
[2025-04-23] MEDS: LOSARTAN POTASSIUM 25 MG TAB PO ONE (00:48)
--- NOTE | 2025-04-23 00:51 | DVH ---
EXAMINATION: CT CT R FOOT WO CONTRAST INDICATION: left leg ulcer, eval for osteomylitis COMPARISON: None TECHNIQUE: CT of the right foot and ankle was performed without contrast. Volume transverse images were obtained reconstructed in multiple planes using bone and soft tissue algorithms. Radiation dose: CTDIvol: 8 mGy. DLP: 216 mGy cm. FINDINGS: Broad area of skin/superficial subcutaneous irregularity overlying the distal fibula and lateral malleolus, with underlying subcutaneous stranding and confluence soft tissue density. No obvious fluid collection. Edema extends along the midfoot and forefoot, predominantly dorsally. Unremarkable CT appearance of the muscles and tendons. No evidence of osseous erosion, periostitis, or pathologic sclerosis. Diffuse osteopenia. No acute fracture. Mild polyarticular osteoarthrosis. No obvious joint effusion. IMPRESSION: 1. No CT evidence of right foot or ankle osteomyelitis. 2. Superficial soft tissue irregularity overlying a majority of the distal fibula, with soft tissue edema extending to the forefoot. No obvious abscess. Correlate with physical exam.
--- NOTE | 2025-04-23 03:32 | DVH ---
MEDICAL RECORDS NUMBER: [id number] PROCEDURE: Bilateral lower extremity venous duplex Date: 04/23/2025 01:33 AM HISTORY: High D-dimer COMPARISON: XY R TIB FIB XRAY on DOS: 09/30/24 TECHNIQUE: Real-time ultrasound scan of the examination listed above with color Doppler flow, spectral waveform analysis and compression. FINDINGS: Lack of Compression is noted distal left femoral vein and popliteal vein. Multiple grayscale and Doppler images of the bilateral lower extremities otherwise demonstrate normal phasic flow, augmentation and compression. IMPRESSION: 1. Findings are concerning for nonocclusive thrombus in the distal femoral vein popliteal vein. This information was provided to JAIRON Leonard at this time
[2025-04-23 04:53] LABS: Hematocrit 41.2 % (41.0-53.0); Hemoglobin 14.0 g/dL (13.5-17.5); Mean Corpuscular Hemoglobin 30.1 pg (28.0-32.0); Mean Corpuscular Volume 88.7 fL (80.0-100.0); Nucleated Red Blood Cells % 0.0 %
[2025-04-23 05:07] LABS: Alanine Aminotransferase 15 U/L (7-40); Albumin 3.7 g/dL (3.2-4.8); Alkaline Phosphatase 78 U/L (46-116); Anion Gap 8 (5-15); BUN/Creatinine Ratio 11.4 (10.0-20.0); Bilirubin, Total 0.3 mg/dL (0.2-1.0); Calcium 9.2 mg/dL (8.7-10.4); Carbon Dioxide 27 mmol/L (20-31); Chloride 103 mmol/L (98-107); Glucose 86 mg/dL (74-106); Potassium 4.0 mmol/L (3.5-5.1); Sodium 138 mmol/L (136-145); Total Protein 6.8 g/dL (5.7-8.2)
[2025-04-23 05:09] LABS: Blood Urea Nitrogen 8 mg/dL (9-23)
[2025-04-23 05:30] VITALS: BP 125/83; PULSE 70; RESP 17; TEMP 97.5; O2SAT 99
[2025-04-23 05:33] VITALS: BP 125/83; PULSE 66; RESP 17; TEMP 97.3; O2SAT 99
[2025-04-23 08:57] LABS: Urine Protein, UAD Negative (Negative)
[2025-04-23 09:00] VITALS: BP_SYST 130; BP_SYST 168; BP_DIAS 113; BP_DIAS 73; PULSE 63; PULSE 93; RESP 14; RESP 18; TEMP 97.7; TEMP 97.8; O2SAT 96; O2SAT 98
[2025-04-23 09:11] LABS: Amphetamine Screen, Urine Neg (NEGATIVE)
[2025-04-23 09:20] LABS: Barbiturate Scree,Urine Neg (NEGATIVE); Benzodiazephine Screen, Urine Neg (NEGATIVE); Cannabinoid Screen, Urine Pos (NEGATIVE); Cocaine Screen, Urine Neg (NEGATIVE); Opiate Scree,Urine Neg (NEGATIVE); Phencyclidine Screen, Urine Neg (NEGATIVE)
[2025-04-23] MEDS: CLOPIDOGREL BISULFATE 75 MG TAB PO SCH (09:33)
[2025-04-23] MEDS: ENOXAPARIN SOD 100 MG/1 ML SYRINGE SC SCH (09:34)
[2025-04-23] MEDS: LOSARTAN POTASSIUM 25 MG TAB PO SCH (09:34)
[2025-04-23] MEDS ORDERED: APIX2.5T PO (11:16)
[2025-04-23] MEDS ORDERED: LOSA25TA5 PO (11:16)
[2025-04-23] MEDS ORDERED: CLOP75TA28 PO (11:16)
[2025-04-23 13:00] VITALS: BP 153/86; PULSE 71; RESP 16; TEMP 98.3; O2SAT 98
--- NOTE | 2025-04-23 13:29 | DVHPN2 ---
Subjective pain is better Reviewed: H&P Changes from previous H/P or p: No Changes Eyes: No Pain, No Vision change, No Conjunctivae inflammation, No Eyelid inflammation, No Other, No Redness ENT: No Ear pain, No Ear discharge, No Nose pain, No Nose discharge, No Nose congestion, No Mouth pain, No Mouth swelling, No Throat pain, No Throat swelling, No Other Cardiovascular: No Chest Pain, No Palpitations, No Orthopnea, No Paroxysmal Noc. Dyspnea, No Edema, No Lt Headedness, No Other Respiratory: No Cough, No Dry, No Shortness of breath, No SOB with excertion, No Wheezing, No Hemoptysis, No Pleuritic Pain, No Sputum, No Other Gastrointestinal: No Nausea, No Vomiting, No Abdominal Pain, No Diarrhea, No Constipation, No Melena, No Hematochezia, No Other Genitourinary: No Dysuria, No Frequency, No Incontinence, No Hematuria, No Retention, No Other Musculoskeletal: other (Right ankle swelling and draining ulcer); No neck pain, No shoulder pain, No arm pain, No back pain, No hand pain, No leg pain; foot pain Skin: No Rash, No Lesions, No Jaundice, No Bruising, No Other Objective Vitals Vital Signs Date Time Temp Pulse Resp B/P (MAP) Pulse Ox O2 Delivery O2 Flow Rate FiO2 04/23/25 13:00 98.3 71 16 153/86 (108) 98 98.3 04/23/25 08:00 Room Air* 0 21 Intake/Output Intake and Output 04/23/25 07:00 Intake Total 1350 ml Balance 1350 ml IV Total 1350 ml General Appearance: Alert, Oriented X3 HEENT: Atraumatic Lungs: Clear to auscultation Cardiovascular: Regular rate, Normal S1, Normal S2 Abdomen: Normal bowel sounds Medications Current Medications Medications Dose Ordered Sig/Bro Route Start Time Stop Time Status Last Admin Dose Admin Acetaminophen/ Hydrocodone Bitart 1 tab Q4HP PRN PO 04/22/25 23:45 Ondansetron HCl 4 mg Q4HP PRN IV 04/22/25 23:45 Acetaminophen 650 mg Q6HP PRN PO 04/22/25 23:45 Enoxaparin Sodium 70 mg Q12HR SC 04/23/25 10:00 Ceftriaxone Sodium 50 ml @ 100 mls/hr DAILY@09 IV 04/23/25 09:00 04/23/25 09:33 100 MLS/HR Vancomycin HCl 0 ml @ 0 mls/hr PER PHARMACY IV 04/22/25 23:45 Clopidogrel Bisulfate 75 mg DAILY PO 04/23/25 10:00 04/23/25 09:33 75 MG Losartan Potassium 25 mg DAILY PO 04/23/25 10:00 04/23/25 09:34 25 MG Hydromorphone HCl 0.25 mg Q4HPRN PRN IV 04/23/25 00:15 Laboratory Results Laboratory Tests 04/23/25 04:25 Chemistry Test 04/22/25 21:35 04/23/25 04:25 Albumin 4.2 g/dL (3.2-4.8) 3.7 g/dL (3.2-4.8) Calcium Level 9.8 mg/dL (8.7-10.4) 9.2 mg/dL (8.7-10.4) Magnesium Level 2.0 mg/dL (1.6-2.6) Total Protein 7.6 g/dL (5.7-8.2) 6.8 g/dL (5.7-8.2) Coagulation Test 04/22/25 21:35 D-Dimer, Quantitative 6.72 mg/L FEU (0.0-0.49) H Cardiac Markers Test 04/23/25 00:43 B-Type Natriuretic Peptide 221.69 pg/mL (0-100) LFT Test 04/22/25 21:35 04/23/25 04:25 Alanine Aminotransferase (ALT) 19 U/L (7-40) 15 U/L (7-40) Alkaline Phosphatase 91 U/L (46-116) 78 U/L (46-116) Aspartate Amino Transferase (AST) 22 U/L (13-40) 16 U/L (13-40) Total Bilirubin 0.3 mg/dL (0.2-1.0) 0.3 mg/dL (0.2-1.0) Urinalysis Test 04/23/25 08:35 Urine Color Straw (Yellow) Urine Clarity Clear (Clear) Urine pH 7.0 (5.0-9.0) Urine Specific [place] 1.006 (1.001-1.035) Urine Protein Negative (Negative) Urine Ketones Negative (Negative) Urine Blood Negative /uL (Negative) Urine Nitrite Negative (Negative) Urine Bilirubin Negative (Negative) Urine Urobilinogen Normal mg/dL (Negative) Urine Leukocyte Esterase Trace /uL (Negative) Urine RBC 1 /hpf (0 - 3) Urine Microscopic WBC 2 /HPF (0-3) Urine Squamous Epithelial Cells Few /hpf (<5) Urine Bacteria None seen /hpf (None Seen) Urine Glucose Normal mg/dL (Normal) Microbiology Microbiology Date/Time Source Procedure Growth Status 04/23/25 01:25 Nose MRSA Screen - Final Complete Assessment/Plan Assessment/Plan #Sepsis due to draining right ankle ulcer #Right ankle cellulitis #Intractable foot pain due to above - CRP 8.67, ESR 43 - ceftriaxone 1 g IV daily - vancomycin per pharmacy Consult podiatry #Hypertensive heart disease due to diastolic dysfunction #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 daily #Left lower extremity DVT #History of DVT #History of peripheral artery disease - D-dimer 6.72 - bilateral lower extremity venous Doppler shows: Findings are concerning for nonocclusive thrombus in the distal femoral vein popliteal vein. - patient takes Eliquis at home - therapeutic Lovenox 1 mg/ kg b.i.d. daily - Arterial doppler of B/L lower extremities #Polysubstance abuse ( nicotine, marijuana) - patient counseled extensively regarding cessation of cigarette and marijuana smoking and continued cessation of methamphetamine for over 8 minutes Plan discussed with: Patient Date of Service: Apr 23, 2025 Billing Provider: FRANNIE RING MD Common Visit Codes: [id number] INP/OBS CARE(HIGH) FRANNIE RING MD Apr 23, 2025 13:29
[2025-04-23] MEDS: HYDROcodone-ACET 5/325MG TAB PO PRN (13:34)
[2025-04-23] MEDS: APIXABAN 5 MG TAB PO ONE (15:10)
--- NOTE | 2025-04-23 15:26 | DVH ---
BILATERAL Lower Extremity Arterial Duplex Date: 04/23/2025 02:14 PM Clinical History: history of pad, now low feeble dorsalis pedis pulses Comparison: None Technique: Duplex Doppler evaluation including color Doppler and spectral/pulsed waveform analysis of the lower extremity arteries was performed. Finding: RIGHT: Peak systolic velocities are as follows: MEDICAL RECEPTIONIST MEDICAL ASSISTANT 81 cm/s triphasic waveform Deep femoral 346 cm/s triphasic waveform greater than 80% stenosis SFA proximal 0 SFA mid-portion 0 SFA distal 0 Popliteal 0 Posterior tibial 0 Anterior tibial 23 cm/s monophasic waveform Dorsalis pedis 27 cm/s monophasic waveform The waveforms are greater than 80% stenosis in the deep femoral artery. LEFT: Peak systolic velocities are as follows: MEDICAL RECEPTIONIST MEDICAL ASSISTANT 113 cm/s triphasic waveform Deep femoral 240 cm/s triphasic waveform SFA proximal 0 SFA mid-portion 0 SFA distal 0 Popliteal 47 cm/s monophasic waveform Posterior tibial 18 cm/s monophasic waveform Anterior tibial 22 cm/s monophasic waveform Dorsalis pedis 11 cm/s monophasic waveform The waveforms are triphasic waveform in the common femoral artery and deep femoral artery. Occlusion throughout the superficial femoral artery. Monophasic waveform in the popliteal artery and distally. REFERENCE VALUES, [facility] ([facility]) vascular Imaging Lab Criteria: Peak systolic velocity ranges (in cm/sec) are as follows: <150 cm/s - <20 % stenosis 150-200 cm/s - 20-49% stenosis 200-300 cm/s - 50-75% stenosis >300 cm/s -> 75% stenosis IMPRESSION: 1. There is greater than 80% stenosis in the right deep femoral artery. No flow noted in the right superficial femoral artery or right popliteal artery or right posterior tibial artery.. 2. There is 50-80% stenosis in the left deep femoral artery. 3. Occlusion in the left superficial femoral artery. 4. Arteriosclerotic disease in the popliteal artery on the left distally.
[2025-04-23] MEDS: VANCOMYCIN 1GM/250ML KIT 250 ML IV SCH (16:30)
[2025-04-23 17:00] VITALS: BP 131/74; PULSE 64; RESP 14; TEMP 98.5; O2SAT 97
[2025-04-23] MEDS: APIXABAN 5 MG TAB PO SCH (20:46)
[2025-04-23] MEDS: HYDROmorphone HCL 2 MG/ML VL/or syr IV PRN (20:48)
[2025-04-23 21:00] VITALS: BP 137/85; PULSE 69; RESP 17; TEMP 97.8; O2SAT 96
[2025-04-24] VITALS (7 sets, daily range): BP systolic 114–135; BP diastolic 67–92; PULSE 53–71; RESP 16–18; TEMP 97.4–98.4; O2SAT 95–98
[2025-04-24 09:11] LABS: Hematocrit 40.0 % (41.0-53.0); Hemoglobin 13.7 g/dL (13.5-17.5); Mean Corpuscular Hemoglobin 30.0 pg (28.0-32.0); Mean Corpuscular Volume 87.7 fL (80.0-100.0); Nucleated Red Blood Cells % 0.2 %
--- NOTE | 2025-04-24 12:26 | DVHPN2 ---
Subjective pain is better Reviewed: H&P Changes from previous H/P or p: No Changes Eyes: No Pain, No Vision change, No Conjunctivae inflammation, No Eyelid inflammation, No Other, No Redness ENT: No Ear pain, No Ear discharge, No Nose pain, No Nose discharge, No Nose congestion, No Mouth pain, No Mouth swelling, No Throat pain, No Throat swelling, No Other Cardiovascular: No Chest Pain, No Palpitations, No Orthopnea, No Paroxysmal Noc. Dyspnea, No Edema, No Lt Headedness, No Other Respiratory: No Cough, No Dry, No Shortness of breath, No SOB with excertion, No Wheezing, No Hemoptysis, No Pleuritic Pain, No Sputum, No Other Gastrointestinal: No Nausea, No Vomiting, No Abdominal Pain, No Diarrhea, No Constipation, No Melena, No Hematochezia, No Other Genitourinary: No Dysuria, No Frequency, No Incontinence, No Hematuria, No Retention, No Other Musculoskeletal: other (Right ankle swelling and draining ulcer); No neck pain, No shoulder pain, No arm pain, No back pain, No hand pain, No leg pain; foot pain Skin: No Rash, No Lesions, No Jaundice, No Bruising, No Other Objective Vitals Vital Signs Date Time Temp Pulse Resp B/P (MAP) Pulse Ox O2 Delivery O2 Flow Rate FiO2 04/24/25 10:31 53 16 117/68 04/24/25 08:46 97.4 97 97.4 04/24/25 08:00 Room Air* 0 21 Intake/Output Intake and Output 04/24/25 07:00 Intake Total 2740 ml Balance 2740 ml Intake Oral 2440 ml IV Total 300 ml # Voids 9 # Bowel Movements 3 General Appearance: Alert, Oriented X3 HEENT: Atraumatic Lungs: Clear to auscultation Cardiovascular: Regular rate, Normal S1, Normal S2 Abdomen: Normal bowel sounds Medications Current Medications Medications Dose Ordered Sig/Bro Route Start Time Stop Time Status Last Admin Dose Admin Acetaminophen/ Hydrocodone Bitart 1 tab Q4HP PRN PO 04/22/25 23:45 04/24/25 06:13 1 TAB Ondansetron HCl 4 mg Q4HP PRN IV 04/22/25 23:45 Acetaminophen 650 mg Q6HP PRN PO 04/22/25 23:45 Ceftriaxone Sodium 50 ml @ 100 mls/hr DAILY@09 IV 04/23/25 09:00 04/23/25 09:33 100 MLS/HR Vancomycin HCl 0 ml @ 0 mls/hr PER PHARMACY IV 04/22/25 23:45 Clopidogrel Bisulfate 75 mg DAILY PO 04/23/25 10:00 04/24/25 10:29 75 MG Losartan Potassium 25 mg DAILY PO 04/23/25 10:00 04/24/25 10:29 25 MG Hydromorphone HCl 0.25 mg Q4HPRN PRN IV 04/23/25 00:15 04/24/25 10:31 0.25 MG Apixaban 5 mg BID PO 04/23/25 22:00 04/24/25 10:29 5 MG Vancomycin HCl 250 ml @ 250 mls/hr Q8H IV 04/23/25 16:00 04/24/25 10:30 250 MLS/HR Laboratory Results Laboratory Tests 04/23/25 04:25 04/24/25 08:18 Urinalysis Test 04/23/25 08:35 Urine Color Straw (Yellow) Urine Clarity Clear (Clear) Urine pH 7.0 (5.0-9.0) Urine Specific [place] 1.006 (1.001-1.035) Urine Protein Negative (Negative) Urine Ketones Negative (Negative) Urine Blood Negative /uL (Negative) Urine Nitrite Negative (Negative) Urine Bilirubin Negative (Negative) Urine Urobilinogen Normal mg/dL (Negative) Urine Leukocyte Esterase Trace /uL (Negative) Urine RBC 1 /hpf (0 - 3) Urine Microscopic WBC 2 /HPF (0-3) Urine Squamous Epithelial Cells Few /hpf (<5) Urine Bacteria None seen /hpf (None Seen) Urine Glucose Normal mg/dL (Normal) Microbiology Microbiology Date/Time Source Procedure Growth Status 04/23/25 01:25 Nose MRSA Screen - Final Complete 04/22/25 22:25 Blood Blood Culture - Preliminary NO GROWTH AFTER 24 HOURS OF INCUBATION. 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 daily #Left lower extremity DVT #History of DVT #History of peripheral artery disease - D-dimer 6.72 - bilateral lower extremity venous Doppler shows: Findings are concerning for nonocclusive thrombus in the distal femoral vein popliteal vein. - patient takes Eliquis at home - therapeutic Lovenox 1 mg/ kg b.i.d. daily - Arterial doppler of B/L lower extremities #Polysubstance abuse ( nicotine, marijuana) - patient counseled extensively regarding cessation of cigarette and marijuana smoking and continued cessation of methamphetamine for over 8 minutes Plan discussed with: Patient My Orders Orders - FRANNIE RING MD Procedure Category Date Status Time Apixaban (Eliquis) PHA 04/23/25 In Process 22:00 Date of Service: Apr 24, 2025 Billing Provider: FRANNIE RING MD Common Visit Codes: [id number] INP/OBS CARE(HIGH) FRANNIE RING MD Apr 24, 2025 12:26
--- NOTE | 2025-04-24 19:44 | DVHSR ---
APPROVED REPORT EXAM: Two-dimensional and M-mode echocardiogram with Doppler and color Doppler. Blood Pressure: 117/68 mmHg INDICATION Chest Pain History of CHF RISK FACTORS Height: 6'2", Weight: 145 DIMENSIONS LVDd 5.8 (3.8-5.7cm) LA (2D) 3.9 (1.9-4.0cm) Aortic Root 3.7 (2.0-3.7cm) LVDs 4.8 (2.5-4.0cm) LA (MM) (1.9-4.0cm) Aortic Cusp Exc 2.1 (1.5-2.0cm) EF (%) 25.0 (55-70%) Rt. Atrium 3.8 (1.9-4.0cm) Asc. Aorta cm IVSd 0.9 (0.7-1.1cm) RV (D) 3.5 (1.8-2.4cm) PWd 1.0 (0.7-1.1cm) Mitral Valve Mitral Mitral Stenosis E wave 0.59m/s MV Mean GR. mmHg A wave 0.65m/s MV Peak GR. mmHg E/A ratio 0.9 2D MVA cm2 DECEL Time 200ms PRESS 1/2 Time ms Aortic Valve Aortic Valve Aortic Stenosis V1 0.73m/s AO Mean GR. 2mmHg V2 1.02m/s AO Peak GR. 4mmHg LVOT Diameter 2.2 (1.8-2.4cm) Doppler DUNCAN 2.72cm2 Pulmonic Valve V2 0.81m/s Conclusion ENTIRE ANTERIOR WALL,LV APEX AND DISTAL HALF OF IVS IS REMARKABLY HYPOKINETIC DILATED LV LV EF IS ONLY 25% NORMAL VALVES NO EFFUSION
[2025-04-25] VITALS (8 sets, daily range): BP systolic 99–137; BP diastolic 61–86; PULSE 63–71; RESP 16–18; TEMP 98–98.4; O2SAT 92–97
[2025-04-25 06:45] LABS: Hematocrit 42.0 % (41.0-53.0); Hemoglobin 14.7 g/dL (13.5-17.5); Mean Corpuscular Hemoglobin 30.6 pg (28.0-32.0); Mean Corpuscular Volume 87.7 fL (80.0-100.0)
[2025-04-25 07:12] LABS: Nucleated Red Blood Cells % 0.0 %
--- NOTE | 2025-04-25 13:30 | DVHPN2 ---
Subjective Patient is here for right ankle cellulitis. Wound culture grew Proteus mirabilis. Reviewed: H&P Changes from previous H/P or p: No Changes Eyes: No Pain, No Vision change, No Conjunctivae inflammation, No Eyelid inflammation, No Other, No Redness ENT: No Ear pain, No Ear discharge, No Nose pain, No Nose discharge, No Nose congestion, No Mouth pain, No Mouth swelling, No Throat pain, No Throat swelling, No Other Cardiovascular: No Chest Pain, No Palpitations, No Orthopnea, No Paroxysmal Noc. Dyspnea, No Edema, No Lt Headedness, No Other Respiratory: No Cough, No Dry, No Shortness of breath, No SOB with excertion, No Wheezing, No Hemoptysis, No Pleuritic Pain, No Sputum, No Other Gastrointestinal: No Nausea, No Vomiting, No Abdominal Pain, No Diarrhea, No Constipation, No Melena, No Hematochezia, No Other Genitourinary: No Dysuria, No Frequency, No Incontinence, No Hematuria, No Retention, No Other Musculoskeletal: other (Right ankle swelling and draining ulcer); No neck pain, No shoulder pain, No arm pain, No back pain, No hand pain, No leg pain; foot pain Skin: No Rash, No Lesions, No Jaundice, No Bruising, No Other Objective Vitals Vital Signs Date Time Temp Pulse Resp B/P (MAP) Pulse Ox O2 Delivery O2 Flow Rate FiO2 04/25/25 13:00 98.0 71 17 99/72 (81) 95 98.0 04/25/25 08:02 Room Air* 0 21 Intake/Output Intake and Output 04/25/25 07:00 Intake Total 2300 ml Output Total 2080 ml Balance 220 ml Intake Oral 1500 ml IV Total 800 ml Output Urine Total 2080 ml # Voids 2 # Bowel Movements 2 Exam HEENT pupils are reactive Neck is supple CV is S1-S2 regular rate and rhythm Respiratory diminished breath sounds bases GI positive bowel sound Extremity no edema right ankle is antiseptic dressing [employer] no motor deficit General Appearance: Alert, Oriented X3 HEENT: Atraumatic Lungs: Clear to auscultation Cardiovascular: Regular rate, Normal S1, Normal S2 Abdomen: Normal bowel sounds Medications Current Medications Medications Dose Ordered Sig/Bro Route Start Time Stop Time Status Last Admin Dose Admin Acetaminophen/ Hydrocodone Bitart 1 tab Q4HP PRN PO 04/22/25 23:45 04/25/25 02:56 1 TAB Ondansetron HCl 4 mg Q4HP PRN IV 04/22/25 23:45 Acetaminophen 650 mg Q6HP PRN PO 04/22/25 23:45 Ceftriaxone Sodium 50 ml @ 100 mls/hr DAILY@09 IV 04/23/25 09:00 04/25/25 08:38 100 MLS/HR Vancomycin HCl 0 ml @ 0 mls/hr PER PHARMACY IV 04/22/25 23:45 Clopidogrel Bisulfate 75 mg DAILY PO 04/23/25 10:00 04/25/25 08:38 75 MG Losartan Potassium 25 mg DAILY PO 04/23/25 10:00 04/25/25 08:39 25 MG Hydromorphone HCl 0.25 mg Q4HPRN PRN IV 04/23/25 00:15 04/25/25 10:28 0.25 MG Apixaban 5 mg BID PO 04/23/25 22:00 04/25/25 08:38 5 MG Vancomycin HCl 250 ml @ 250 mls/hr Q12H IV 04/25/25 16:00 Laboratory Results Laboratory Tests 04/23/25 04:25 04/25/25 05:48 Urinalysis Test 04/23/25 08:35 Urine Color Straw (Yellow) Urine Clarity Clear (Clear) Urine pH 7.0 (5.0-9.0) Urine Specific [place] 1.006 (1.001-1.035) Urine Protein Negative (Negative) Urine Ketones Negative (Negative) Urine Blood Negative /uL (Negative) Urine Nitrite Negative (Negative) Urine Bilirubin Negative (Negative) Urine Urobilinogen Normal mg/dL (Negative) Urine Leukocyte Esterase Trace /uL (Negative) Urine RBC 1 /hpf (0 - 3) Urine Microscopic WBC 2 /HPF (0-3) Urine Squamous Epithelial Cells Few /hpf (<5) Urine Bacteria None seen /hpf (None Seen) Urine Glucose Normal mg/dL (Normal) Microbiology Microbiology Date/Time Source Procedure Growth Status 04/23/25 01:25 Nose MRSA Screen - Final Complete 04/22/25 22:25 Blood Blood Culture - Preliminary NO GROWTH AFTER 48 HOURS OF INCUBATION. Resulted Assessment/Plan Assessment/Plan 59-year-old male with a known history of hypertension, coronary artery disease status post PCI, history of DVT currently on Eliquis presented to the hospital with a right ankle wound which started three years ago, worsening for last few days found to have 1. Right ankle cellulitis with the open wound 2. Hypertension 3. Known CAD status post PCI 4. Congestive heart failure with systolic dysfunction currently compensated 5. History of DVT currently on Eliquis -continue home medications, IV antibiotics, Podiatry consultation. Plan discussed with: Patient Problem List: (1) Cellulitis (2) Ulcer of right lower leg Date of Service: Apr 25, 2025 Billing Provider: FLORENCIO MALIN MD Common Visit Codes: [id number] INP/OBS CARE(HIGH) FLORENCIO MALIN MD Apr 25, 2025 13:29
--- NOTE | 2025-04-25 14:02 | DVHCONRES ---
Date Seen: Apr 25, 2025 Reason for Consultation Ankle wound History of Present Illness 59-year-old male with a PMH of hypertension, CHF, DVT, 1 OH event with stent placed, PAD and surgical history of 4 surgeries in the left knee, left shoulder rotator cuff surgery, has come in with the chief complaints of draining right ankle wound which is painful. Patient reports that 3 years ago, he was bitten by a brown recluse spider on his right ankle which never healed properly. He reports that on the same leg he fell down and hurt himself with a metal last year, after which the wound has never gone away. 7 days ago he noted his right ankle had begun to swell and the scab was cracking, which burst and drained foul-smelling yellow liquid. The pain in his ankle has been increasing, throbbing, 10/10 in intensity today, radiating to the knee, with no aggravating or relieving factors. Due to the excess amount of drainage and pain, patient decided to visit the ER today. On admission, patient was septic with pulse 98, RR 21, temp 98, BP 140/110 mmHg, SpO2 96 % on ra. Labs show lactic acid of 2.8. We are admitting the patient for further workup and management. Past Medical History See H&P Past Surgical History See H&P Family History: Patient reports no known family medical history. Allergies: Coded Allergies: NO KNOWN ALLERGIES (Unverified , 09/30/24) Home Meds Active Scripts Mupirocin Calcium (Topical) (MUPIROCIN) 2 % Cre, 2 % EX BID for 20 Days, #30 CRE 3 Refills Prov:RADHA MESA MD 09/30/24 Doxycycline Hyclate (DOXYCYCLINE HYCLATE) 100 Mg Tab, 1 TAB PO BID for 10 Days, #20 TAB Prov:RADHA MESA MD 09/30/24 Reported Medications Losartan Potassium (Cozaar) 25 Mg Tab, 1 TAB PO DAILY, #30 TAB 5 Refills 04/23/25 Clopidogrel Bisulfate (Plavix) 75 Mg Tab, 1 TAB PO DAILY, #90 TAB 1 Refill 04/23/25 Apixaban Base (ELIQUIS) 2.5 Mg Tab, 2.5 MG PO BID, TAB 04/23/25 Current Medications Current Medications Medications (Trade) Dose Ordered Sig/Bro Route PRN Reason Start Time Stop Time Status Last Admin Vancomycin HCl 250 ml @ 250 mls/hr Q12H IV 04/25/25 16:00 Vital Signs Vital Signs Date Time Temp Pulse Resp B/P (MAP) Pulse Ox O2 Delivery O2 Flow Rate FiO2 04/25/25 13:00 98.0 71 17 99/72 (81) 95 98.0 04/25/25 08:02 Room Air* 0 21 Physical Exam Dermatological: Skin is dry with mild erythema and some maceration around the wound site No gross deformities noted Mild non-pitting edema present bilaterally Right lateral ankle wound with mixed fiber granular base some surrounding e rythema Vascular: Dorsalis pedis and posterior tibial pulses are 1+ bilaterally Capillary refill is under 2 seconds Skin temperature is warm bilaterally Neurologic: Protective sensation is absent on the plantar forefoot bilaterally Monofilament testing reveals decreased sensation in multiple plantar sites Musculoskeletal: Range of motion at the ankle and MTP joints is within normal limits. Strength is 5/5 in all tested muscle groups. Gait is antalgic due to offloading of the affected limb. Labs/Diagnostic Data Labs Test 04/25/25 05:48 04/23/25 08:35 04/23/25 04:25 04/23/25 00:43 Range/Units White Blood Count 8.3 4.4-10.8 10^3/uL Red Blood Count 4.79 4.5-5.90 10^6/uL Hemoglobin 14.7 13.5-17.5 g/dL Hematocrit 42.0 41.0-53.0 % Mean Corpuscular Volume 87.7 80.0-100.0 fL Mean Corpuscular Hemoglobin 30.6 28.0-32.0 pg Mean Corpuscular Hemoglobin Concent 34.9 32.0-36.0 g/dL Red Cell Distribution Width 14.4 H 11.8-14.3 % Platelet Count 324 140-450 10^3/uL Mean Platelet Volume 7.8 6.9-10.8 fL Neutrophils (%) (Auto) 61.2 37.0-80.0 % Lymphocytes (%) (Auto) 23.7 10.0-50.0 % Monocytes (%) (Auto) 10.3 0.0-12.0 % Eosinophils (%) (Auto) 4.1 0.0-7.0 % Basophils (%) (Auto) 0.7 0.0-2.0 % Neutrophils # (Auto) 5.1 1.6-8.6 10 ^3/uL Lymphocytes # (Auto) 2.0 0.4-5.4 10 ^3/uL Monocytes # (Auto) 0.9 0-1.3 10 ^3/uL Eosinophils # (Auto) 0.3 0-0.8 10 ^3/uL Basophils # (Auto) 0.1 0-0.2 10 ^3/uL Nucleated Red Blood Cells 0.0 % Creatinine 0.86 0.700-1.30 mg/dL Glomerular Filtration Rate Calc 100 >90 mL/min Vancomycin Level Trough 27.7 H 5-10 ug/mL Urine Color Straw Yellow Urine Clarity Clear Clear Urine pH 7.0 5.0-9.0 Urine Specific [place] 1.006 1.001-1.035 Urine Protein Negative Negative Urine Ketones Negative Negative Urine Blood Negative Negative /uL Urine Nitrite Negative Negative Urine Bilirubin Negative Negative Urine Urobilinogen Normal Negative mg/dL Urine Leukocyte Esterase Trace Negative /uL Urine RBC 1 0 - 3 /hpf Urine Microscopic WBC 2 0-3 /HPF Urine Squamous Epithelial Cells Few <5 /hpf Urine Bacteria None seen None Seen /hpf Urine Glucose Normal Normal mg/dL Urine Opiates Screen Neg NEGATIVE Urine Fentanyl Screen Neg NEGATIVE Urine Barbiturates Screen Neg NEGATIVE Urine Phencyclidine Screen Neg NEGATIVE Urine Amphetamines Screen Neg NEGATIVE Urine Benzodiazepines Screen Neg NEGATIVE Urine Cocaine Screen Neg NEGATIVE Urine Cannabinoids Screen Pos NEGATIVE Sodium Level 138 136-145 mmol/L Potassium Level 4.0 3.5-5.1 mmol/L Chloride Level 103 98-107 mmol/L Carbon Dioxide Level 27 20-31 mmol/L Anion Gap 8 5-15 Blood Urea Nitrogen 8 L 9-23 mg/dL BUN/Creatinine Ratio 11.4 10.0-20.0 Serum Glucose 86 74-106 mg/dL Lactic Acid Level 1.2 0.4-2.0 mmol/L Calcium Level 9.2 8.7-10.4 mg/dL Total Bilirubin 0.3 0.2-1.0 mg/dL Aspartate Amino Transferase (AST) 16 13-40 U/L Alanine Aminotransferase (ALT) 15 7-40 U/L Alkaline Phosphatase 78 46-116 U/L Total Protein 6.8 5.7-8.2 g/dL Albumin 3.7 3.2-4.8 g/dL Erythrocyte Sedimentation Rate 43 H 0-20 mm/hr B-Type Natriuretic Peptide 221.69 0-100 pg/mL Test 04/22/25 21:35 Range/Units D-Dimer, Quantitative 6.72 H 0.0-0.49 mg/L FEU Magnesium Level 2.0 1.6-2.6 mg/dL C-Reactive Protein High Sensitivity 8.67 H <1.0 mg/dL Microbiology Date/Time Source Procedure Growth Status 04/23/25 01:25 Nose MRSA Screen - Final Complete 04/22/25 22:25 Blood Blood Culture - Preliminary NO GROWTH AFTER 48 HOURS OF INCUBATION. Resulted Problems(with codes): (1) Ulcer of right lower leg (2) Cellulitis Plan/Recommendation ASSESSMENT: Patient is a 51 year old seen on the floor for a worsening ulcer PLAN: - The patients chart was reviewed, clinical findings were discussed with the patient, the etiologies of the conditions were discussed in detail, and a treatment plan was agreed to at this time, with both oral and written instructi ons provided. - reviewed advanced imaging - does not appear to have a deeper infection at this point - recommend vascular consult to see if we can optimize blood flow for the wound - continue local wound care - no surgical intervention recommended at this point All questions were answered and concerns addressed to the patient's satisfaction. The patient was given the phone number to the clinic and was told how to make contact with the clinic should any concerns or questions arise. Patient understands that if any questions or concerns arise prior to the next appointment, we should be contacted immediately. FOLLOW-UP: Continue to follow while inpatient Plan discussed with: Patient Visit Coding Podiatry Date of Service if different f: Apr 25, 2025 Billing Provider: VALENTINE SCHWARTZ DPM Podiatry Common Visit Codes: PROCEDURE ONLY VALENTINE SCHWARTZ DPM Apr 25, 2025 14:02
[2025-04-25] MEDS: VANCOMYCIN 1GM/250ML KIT 250 ML IV SCH (16:01)
[2025-04-26 00:58] VITALS: BP 126/87; PULSE 68; RESP 18; TEMP 98.7; O2SAT 97
[2025-04-26 05:27] LABS: Hematocrit 41.4 % (41.0-53.0); Hemoglobin 14.2 g/dL (13.5-17.5); Mean Corpuscular Hemoglobin 30.1 pg (28.0-32.0); Mean Corpuscular Volume 87.8 fL (80.0-100.0); Nucleated Red Blood Cells % 0.0 %
[2025-04-26 09:00] VITALS: BP 122/81; PULSE 80; RESP 17; TEMP 98.4; O2SAT 95
--- NOTE | 2025-04-26 11:49 | DVHCONRES ---
Date Seen: Apr 26, 2025 Resident Creating Document: MIGUEL WEBB Jr., MD Referring Physician jeff Reason for Consultation peripheral vascular disease and right leg ulcer History of Present Illness 59-year-old male with a PMH of hypertension, CHF, DVT, 1 IN event with stent placed, PAD and surgical history of 4 surgeries in the left knee, left shoulder rotator cuff surgery, has come in with the chief complaints of draining right ankle wound which is painful. Patient reports that 3 years ago, he was bitten by a brown recluse spider on his right ankle which never healed properly. He reports that on the same leg he fell down and hurt himself with a metal last year, after which the wound has never gone away. 7 days ago he noted his right ankle had begun to swell and the scab was cracking, which burst and drained foul-smelling yellow liquid. Patient states he had a right femoral to below-knee bypass approximately five years ago or less he is not sure exactly when. He has also had a left lower extremity angioplasty stent. He has had left 5th toe amputation. Patient currently is homeless continued to smoke daily. Uses a walker for ambulation. Ultrasounds demonstrate bilateral SFA occlusions. Patient states according to prior hospitalizations is heart pumps very poorly with a ejection fraction less than 20%. Past Medical History hypertension, CHF, DVT, 1 IN event with stent placed, PAD and surgical history of 4 surgeries in the left knee, left shoulder rotator cuff surgery, has come in with the chief complaints of draining right ankle wound which is painful. Patient reports that 3 years ago, he was bitten by a brown recluse spider on his right ankle which never healed properly. He reports that on the same leg he fell down and hurt himself with a metal last year, after which the wound has never gone away. 7 days ago he noted his right ankle had begun to swell and the scab was cracking, which burst and drained foul-smelling yellow liquid. Past Surgical History Right femoral to below-knee popliteal bypass, left lower extremity angioplasty and stenting, coronary angioplasty and stenting Family History: Patient reports no known family medical history. Social History A currently smokes no alcohol use quit smoking meth proximally three years Allergies: Coded Allergies: NO KNOWN ALLERGIES (Unverified , 09/30/24) Home Meds Active Scripts Mupirocin Calcium (Topical) (MUPIROCIN) 2 % Cre, 2 % EX BID for 20 Days, #30 CRE 3 Refills Prov:RADHA MESA MD 09/30/24 Doxycycline Hyclate (DOXYCYCLINE HYCLATE) 100 Mg Tab, 1 TAB PO BID for 10 Days, #20 TAB Prov:RADHA MESA MD 09/30/24 Reported Medications Losartan Potassium (Cozaar) 25 Mg Tab, 1 TAB PO DAILY, #30 TAB 5 Refills 04/23/25 Clopidogrel Bisulfate (Plavix) 75 Mg Tab, 1 TAB PO DAILY, #90 TAB 1 Refill 04/23/25 Apixaban Base (ELIQUIS) 2.5 Mg Tab, 2.5 MG PO BID, TAB 04/23/25 Current Medications Current Medications Medications (Trade) Dose Ordered Sig/Bro Route PRN Reason Start Time Stop Time Status Last Admin Vancomycin HCl 250 ml @ 250 mls/hr Q12H IV 04/25/25 16:00 04/26/25 04:08 Review of Systems All systems reviewed otherwise negative other than what is in HPI. Vital Signs Vital Signs Date Time Temp Pulse Resp B/P (MAP) Pulse Ox O2 Delivery O2 Flow Rate FiO2 04/26/25 10:05 80 17 122/81 04/26/25 09:00 98.4 95 98.4 04/26/25 07:33 Room Air* 0 21 Physical Exam Head eyes ears nose and throat exam eyes are nonicteric conjunctiva is pink neck was supple no JVD no lymphadenopathy no carotid bruits lungs are clear to auscultation heart was regular rate and rhythm abdomen was soft nontender no pulsatile abdominal mass or bruits lower extremities palpable femoral pulses nonpalpable pedal pulses bilaterally he has nonhealing right lateral leg wound below the knee. There is minimal fibrinous material healthy granulating base. Labs/Diagnostic Data Labs Test 04/26/25 05:00 04/25/25 05:48 04/23/25 08:35 04/23/25 04:25 Range/Units White Blood Count 7.6 4.4-10.8 10^3/uL Red Blood Count 4.71 4.5-5.90 10^6/uL Hemoglobin 14.2 13.5-17.5 g/dL Hematocrit 41.4 41.0-53.0 % Mean Corpuscular Volume 87.8 80.0-100.0 fL Mean Corpuscular Hemoglobin 30.1 28.0-32.0 pg Mean Corpuscular Hemoglobin Concent 34.3 32.0-36.0 g/dL Red Cell Distribution Width 14.4 H 11.8-14.3 % Platelet Count 380 140-450 10^3/uL Mean Platelet Volume 7.8 6.9-10.8 fL Neutrophils (%) (Auto) 60.1 37.0-80.0 % Lymphocytes (%) (Auto) 24.2 10.0-50.0 % Monocytes (%) (Auto) 11.1 0.0-12.0 % Eosinophils (%) (Auto) 3.6 0.0-7.0 % Basophils (%) (Auto) 1.0 0.0-2.0 % Neutrophils # (Auto) 4.6 1.6-8.6 10 ^3/uL Lymphocytes # (Auto) 1.8 0.4-5.4 10 ^3/uL Monocytes # (Auto) 0.8 0-1.3 10 ^3/uL Eosinophils # (Auto) 0.3 0-0.8 10 ^3/uL Basophils # (Auto) 0.1 0-0.2 10 ^3/uL Nucleated Red Blood Cells 0.0 % Creatinine 0.88 0.700-1.30 mg/dL Glomerular Filtration Rate Calc 100 >90 mL/min Vancomycin Level Trough 27.7 H 5-10 ug/mL Urine Color Straw Yellow Urine Clarity Clear Clear Urine pH 7.0 5.0-9.0 Urine Specific [place] 1.006 1.001-1.035 Urine Protein Negative Negative Urine Ketones Negative Negative Urine Blood Negative Negative /uL Urine Nitrite Negative Negative Urine Bilirubin Negative Negative Urine Urobilinogen Normal Negative mg/dL Urine Leukocyte Esterase Trace Negative /uL Urine RBC 1 0 - 3 /hpf Urine Microscopic WBC 2 0-3 /HPF Urine Squamous Epithelial Cells Few <5 /hpf Urine Bacteria None seen None Seen /hpf Urine Glucose Normal Normal mg/dL Urine Opiates Screen Neg NEGATIVE Urine Fentanyl Screen Neg NEGATIVE Urine Barbiturates Screen Neg NEGATIVE Urine Phencyclidine Screen Neg NEGATIVE Urine Amphetamines Screen Neg NEGATIVE Urine Benzodiazepines Screen Neg NEGATIVE Urine Cocaine Screen Neg NEGATIVE Urine Cannabinoids Screen Pos NEGATIVE Sodium Level 138 136-145 mmol/L Potassium Level 4.0 3.5-5.1 mmol/L Chloride Level 103 98-107 mmol/L Carbon Dioxide Level 27 20-31 mmol/L Anion Gap 8 5-15 Blood Urea Nitrogen 8 L 9-23 mg/dL BUN/Creatinine Ratio 11.4 10.0-20.0 Serum Glucose 86 74-106 mg/dL Lactic Acid Level 1.2 0.4-2.0 mmol/L Calcium Level 9.2 8.7-10.4 mg/dL Total Bilirubin 0.3 0.2-1.0 mg/dL Aspartate Amino Transferase (AST) 16 13-40 U/L Alanine Aminotransferase (ALT) 15 7-40 U/L Alkaline Phosphatase 78 46-116 U/L Total Protein 6.8 5.7-8.2 g/dL Albumin 3.7 3.2-4.8 g/dL Test 04/23/25 00:43 04/22/25 21:35 Range/Units Erythrocyte Sedimentation Rate 43 H 0-20 mm/hr B-Type Natriuretic Peptide 221.69 0-100 pg/mL D-Dimer, Quantitative 6.72 H 0.0-0.49 mg/L FEU Magnesium Level 2.0 1.6-2.6 mg/dL C-Reactive Protein High Sensitivity 8.67 H <1.0 mg/dL Microbiology Date/Time Source Procedure Growth Status 04/23/25 01:25 Nose MRSA Screen - Final Complete 04/22/25 22:25 Blood Blood Culture - Preliminary NO GROWTH AFTER 72 HOURS OF INCUBATION. Resulted BILATERAL Lower Extremity Arterial Duplex Date: 04/23/2025 02:14 PM Clinical History: history of pad, now low feeble dorsalis pedis pulses Comparison: None Technique: Duplex Doppler evaluation including color Doppler and spectral/pulsed waveform analysis of the lower extremity arteries was performed. Finding: RIGHT: Peak systolic velocities are as follows: DIRECTOR QUALITY ASSURANCE 81 cm/s triphasic waveform Deep femoral 346 cm/s triphasic waveform greater than 80% stenosis SFA proximal 0 SFA mid-portion 0 SFA distal 0 Popliteal 0 Posterior tibial 0 Anterior tibial 23 cm/s monophasic waveform Dorsalis pedis 27 cm/s monophasic waveform The waveforms are greater than 80% stenosis in the deep femoral artery. LEFT: Peak systolic velocities are as follows: DIRECTOR QUALITY ASSURANCE 113 cm/s triphasic waveform Deep femoral 240 cm/s triphasic waveform SFA proximal 0 SFA mid-portion 0 SFA distal 0 Popliteal 47 cm/s monophasic waveform Posterior tibial 18 cm/s monophasic waveform Anterior tibial 22 cm/s monophasic waveform Dorsalis pedis 11 cm/s monophasic waveform The waveforms are triphasic waveform in the common femoral artery and deep femoral artery. Occlusion throughout the superficial femoral artery. Monophasic waveform in the popliteal artery and distally. REFERENCE VALUES, [facility]) vascular Imaging Lab Criteria: Peak systolic velocity ranges (in cm/sec) are as follows: <150 cm/s - <20 % stenosis 150-200 cm/s - 20-49% stenosis 200-300 cm/s - 50-75% stenosis >300 cm/s -> 75% stenosis IMPRESSION: 1. There is greater than 80% stenosis in the right deep femoral artery. No flow noted in the right superficial femoral artery or right popliteal artery or right posterior tibial artery.. 2. There is 50-80% stenosis in the left deep femoral artery. 3. Occlusion in the left superficial femoral artery. 4. Arteriosclerotic disease in the popliteal artery on the left distally. Assessment 59-year-old male chronic smoker with a chronic right leg wound. Severe peripheral vascular disease with prior lower extremity interventions including right leg bypass and left leg stenting. Recommend CT angiogram to further evaluate his circulation. Continue current wound care with [facility] and wound care consultation. We will follow up after CTA. Plan/Recommendation 59-year-old male chronic smoker with a chronic right leg wound. Severe peripheral vascular disease with prior lower extremity interventions including right leg bypass and left leg stenting. Recommend CT angiogram to further evaluate his circulation. Continue current wound care with [facility] and wound care consultation. We will follow up after CTA. Plan discussed with: Patient MIGUEL WEBB Jr., MD Apr 26, 2025 11:49
[2025-04-26] MEDS ORDERED: IOHEXOL 350 MG/ML 100ML IJ ONE (12:53)
[2025-04-26 13:00] VITALS: BP 131/87; PULSE 70; RESP 17; TEMP 98.3; O2SAT 95
--- NOTE | 2025-04-26 13:14 | DVHPN2 ---
Subjective Patient is here for right ankle cellulitis. Wound culture grew Proteus mirabilis and Enterococcus faecalis Reviewed: H&P Changes from previous H/P or p: No Changes Eyes: No Pain, No Vision change, No Conjunctivae inflammation, No Eyelid inflammation, No Other, No Redness ENT: No Ear pain, No Ear discharge, No Nose pain, No Nose discharge, No Nose congestion, No Mouth pain, No Mouth swelling, No Throat pain, No Throat swelling, No Other Cardiovascular: No Chest Pain, No Palpitations, No Orthopnea, No Paroxysmal Noc. Dyspnea, No Edema, No Lt Headedness, No Other Respiratory: No Cough, No Dry, No Shortness of breath, No SOB with excertion, No Wheezing, No Hemoptysis, No Pleuritic Pain, No Sputum, No Other Gastrointestinal: No Nausea, No Vomiting, No Abdominal Pain, No Diarrhea, No Constipation, No Melena, No Hematochezia, No Other Genitourinary: No Dysuria, No Frequency, No Incontinence, No Hematuria, No Retention, No Other Musculoskeletal: other (Right ankle swelling and draining ulcer); No neck pain, No shoulder pain, No arm pain, No back pain, No hand pain, No leg pain; foot pain Skin: No Rash, No Lesions, No Jaundice, No Bruising, No Other Objective Vitals Vital Signs Date Time Temp Pulse Resp B/P (MAP) Pulse Ox O2 Delivery O2 Flow Rate FiO2 04/26/25 12:27 70 17 131/87 04/26/25 09:00 98.4 95 98.4 04/26/25 07:33 Room Air* 0 21 Intake/Output Intake and Output 04/26/25 07:00 Intake Total 1376 ml Output Total 1000 ml Balance 376 ml Intake Oral 1326 ml IV Total 50 ml Output Urine Total 1000 ml # Voids 6 # Bowel Movements 1 Exam HEENT pupils are reactive Neck is supple CV is S1-S2 regular rate and rhythm Respiratory diminished breath sounds bases GI positive bowel sound Extremity no edema right ankle is antiseptic dressing [employer] no motor deficit General Appearance: Alert, Oriented X3 HEENT: Atraumatic Lungs: Clear to auscultation Cardiovascular: Regular rate, Normal S1, Normal S2 Abdomen: Normal bowel sounds Medications Current Medications Medications Dose Ordered Sig/Bro Route Start Time Stop Time Status Last Admin Dose Admin Acetaminophen/ Hydrocodone Bitart 1 tab Q4HP PRN PO 04/22/25 23:45 04/26/25 04:08 1 TAB Ondansetron HCl 4 mg Q4HP PRN IV 04/22/25 23:45 Acetaminophen 650 mg Q6HP PRN PO 04/22/25 23:45 Ceftriaxone Sodium 50 ml @ 100 mls/hr DAILY@09 IV 04/23/25 09:00 04/26/25 09:02 100 MLS/HR Vancomycin HCl 0 ml @ 0 mls/hr PER PHARMACY IV 04/22/25 23:45 Clopidogrel Bisulfate 75 mg DAILY PO 04/23/25 10:00 04/26/25 09:02 75 MG Losartan Potassium 25 mg DAILY PO 04/23/25 10:00 04/26/25 09:03 25 MG Hydromorphone HCl 0.25 mg Q4HPRN PRN IV 04/23/25 00:15 04/26/25 10:05 0.25 MG Apixaban 5 mg BID PO 04/23/25 22:00 04/26/25 09:02 5 MG Vancomycin HCl 250 ml @ 250 mls/hr Q12H IV 04/25/25 16:00 04/26/25 04:08 250 MLS/HR Laboratory Results Laboratory Tests 04/23/25 04:25 04/26/25 05:00 Urinalysis Test 04/23/25 08:35 Urine Color Straw (Yellow) Urine Clarity Clear (Clear) Urine pH 7.0 (5.0-9.0) Urine Specific [place] 1.006 (1.001-1.035) Urine Protein Negative (Negative) Urine Ketones Negative (Negative) Urine Blood Negative /uL (Negative) Urine Nitrite Negative (Negative) Urine Bilirubin Negative (Negative) Urine Urobilinogen Normal mg/dL (Negative) Urine Leukocyte Esterase Trace /uL (Negative) Urine RBC 1 /hpf (0 - 3) Urine Microscopic WBC 2 /HPF (0-3) Urine Squamous Epithelial Cells Few /hpf (<5) Urine Bacteria None seen /hpf (None Seen) Urine Glucose Normal mg/dL (Normal) Microbiology Microbiology Date/Time Source Procedure Growth Status 04/23/25 01:25 Nose MRSA Screen - Final Complete 04/22/25 22:25 Blood Blood Culture - Preliminary NO GROWTH AFTER 72 HOURS OF INCUBATION. Resulted Assessment/Plan Assessment/Plan 59-year-old male with a known history of hypertension, coronary artery disease status post PCI, history of DVT currently on Eliquis presented to the hospital with a right ankle wound which started three years ago, worsening for last few days found to have 1. Right ankle cellulitis with the open wound 2. Hypertension 3. Known CAD status post PCI 4. Congestive heart failure with systolic dysfunction currently compensated 5. History of DVT currently on Eliquis 6. [id number] peripheral vascular disease bilateral lower extremity -continue home medications, IV antibiotics, Podiatry consultation appreciated -vascular surgery consultation , CT angio of the Plan discussed with: Patient My Orders Orders - FLORENCIO MALIN MD Procedure Category Date Status Time Consult CONS 04/25/25 Transmitted Vascular/Endovascular 13:23 Cleanse Wound With [facility]UD[facility] 04/25/25 In Process Wound Clean 13:20 * Infectious [place]- CONS 04/26/25 Transmitted Danya Han 11:[address] 04/26/25 Taken RUN 12:28 Date of Service: Apr 26, 2025 Billing Provider: FLORENCIO MALIN MD Common Visit Codes: [id number] INP/OBS CARE(HIGH) FLORENCIO MALIN MD Apr 26, 2025 13:14
--- NOTE | 2025-04-26 13:54 | DVH ---
CTA abdomen, pelvis, and both lower extremities with contrast. INDICATION: SEVERE PAD COMPARISON: None TECHNIQUE: Multidetector spiral CTA of the abdomen, pelvis, and both lower extremity was performed of the chest with intravenous contrast. Axial, coronal and sagittal multiplanar and MIP reformats were performed. Radiation Dose : 1. Chest: CTDI volume is 7.57 mGy. Dose-length product is 1102.56 mGy*cm The dose indicators for CT are the volume Computed Tomography (CT) Dose Index (CTDIvol) and the Dose Length Product (DLP), and are measured in units of mGy and mGy-cm, respectively. These indicators are not patient dose, but values generated from the CT scanner acquisition factors. The report includes radiation exposure data for exposures received during this examination. FINDINGS: VASCULAR FINDINGS: Abdominal aorta is normal diameter. No dissection or aneurysm. On the right the common, external, and internal iliac arteries are widely patent. Common femoral popliteal bypass graft is occluded. [place] SFA is occluded. Profunda is patent with collateral flow into the popliteal. 2-vessel runoff with occluded posterior tibial from just beyond its origin. On the left the common, external, and internal iliac arteries are widely patent. SFA is occluded with grafts seen distally. Proximal and mid popliteal are occluded. Distal popliteal is opacified with patent 3-vessel runoff although the peroneal is not well seen from just above the ankle. NONVASCULAR FINDINGS: Visualized portions of the liver, gallbladder, biliary tree, pancreas, and kidneys are unremarkable. No free fluid. No lymphadenopathy. Large right inguinal hernia containing a few small bowel loops. No obstruction or inflammatory changes. Fairly large volume of stool throughout the colon. No suspect bony lesions IMPRESSION: Occluded right femoral popliteal bypass graft with 2-vessel runoff and occluded the posterior tibial. Occluded left SFA and proximal to mid popliteal with patent 3-vessel runoff although the distal peroneal is only faintly opacified.
[2025-04-26 17:00] VITALS: BP 116/72; PULSE 63; RESP 17; TEMP 98.4; O2SAT 94
[2025-04-26 21:00] VITALS: BP 129/80; PULSE 72; RESP 20; TEMP 98; O2SAT 96
[2025-04-27 00:42] VITALS: BP 133/91; PULSE 72; RESP 20; TEMP 98.1; O2SAT 95
[2025-04-27 03:22] LABS: Hematocrit 43.3 % (41.0-53.0); Hemoglobin 14.8 g/dL (13.5-17.5); Mean Corpuscular Hemoglobin 30.2 pg (28.0-32.0); Mean Corpuscular Volume 88.1 fL (80.0-100.0); Nucleated Red Blood Cells % 0.2 %
[2025-04-27 05:00] VITALS: BP 114/69; PULSE 69; RESP 19; TEMP 98.2; O2SAT 96
[2025-04-27 08:50] VITALS: BP 130/85; PULSE 57; RESP 16; TEMP 97.3; O2SAT 94
[2025-04-27 12:34] VITALS: BP 124/78; PULSE 65; RESP 16; TEMP 97.8; O2SAT 95
--- NOTE | 2025-04-27 14:20 | DVHINCON2 ---
Date of service: Apr 26, 2025 Family History: Patient reports no known family medical history. Allergies: Coded Allergies: NO KNOWN ALLERGIES (Unverified , 09/30/24) Home Meds Active Scripts Naloxone HCl (Narcan) 4 Mg/0.1 Ml Spr, 4 MG NA LOBBYIST, #2 SPRAY Prov:FLORENCIO MALIN MD 04/27/25 Hydrocodone-Acetaminophen (Hydrocodone Bitartrate/AC 5-325 mg) 1 Tab Tab, 1 TAB PO Q8HP PRN, #14 TAB Prov:FLORENCIO MALIN MD 04/27/25 Amoxicillin & Pot Clavulanate (AUGMENTIN TABLET) 875 Mg Tb, 875 MG PO BID for 21 Days, #42 TAB Prov:FLORENCIO MALIN MD 04/27/25 Mupirocin Calcium (Topical) (MUPIROCIN) 2 % Cre, 2 % EX BID for 20 Days, #30 CRE 3 Refills Prov:RADHA MESA MD 09/30/24 Reported Medications Losartan Potassium (Cozaar) 25 Mg Tab, 1 TAB PO DAILY, #30 TAB 5 Refills 04/23/25 Clopidogrel Bisulfate (Plavix) 75 Mg Tab, 1 TAB PO DAILY, #90 TAB 1 Refill 04/23/25 Apixaban Base (ELIQUIS) 2.5 Mg Tab, 2.5 MG PO BID, TAB 04/23/25 Discontinued Scripts Doxycycline Hyclate (DOXYCYCLINE HYCLATE) 100 Mg Tab, 1 TAB PO BID for 10 Days, #20 TAB Prov:RADHA MESA MD 09/30/24 Vital Signs Vital Signs Date Time Temp Pulse Resp B/P (MAP) Pulse Ox O2 Delivery O2 Flow Rate FiO2 04/27/25 13:23 64 14 137/85 04/27/25 12:34 97.8 95 97.8 04/27/25 07:49 Room Air* 0 21 Labs/Diagnostic Data Labs Test 04/27/25 02:49 04/23/25 08:35 04/23/25 04:25 04/23/25 00:43 Range/Units White Blood Count 9.1 4.4-10.8 10^3/uL Red Blood Count 4.91 4.5-5.90 10^6/uL Hemoglobin 14.8 13.5-17.5 g/dL Hematocrit 43.3 41.0-53.0 % Mean Corpuscular Volume 88.1 80.0-100.0 fL Mean Corpuscular Hemoglobin 30.2 28.0-32.0 pg Mean Corpuscular Hemoglobin Concent 34.3 32.0-36.0 g/dL Red Cell Distribution Width 14.7 H 11.8-14.3 % Platelet Count 407 140-450 10^3/uL Mean Platelet Volume 7.9 6.9-10.8 fL Neutrophils (%) (Auto) 56.3 37.0-80.0 % Lymphocytes (%) (Auto) 26.7 10.0-50.0 % Monocytes (%) (Auto) 10.9 0.0-12.0 % Eosinophils (%) (Auto) 4.9 0.0-7.0 % Basophils (%) (Auto) 1.2 0.0-2.0 % Neutrophils # (Auto) 5.1 1.6-8.6 10 ^3/uL Lymphocytes # (Auto) 2.4 0.4-5.4 10 ^3/uL Monocytes # (Auto) 1.0 0-1.3 10 ^3/uL Eosinophils # (Auto) 0.5 0-0.8 10 ^3/uL Basophils # (Auto) 0.1 0-0.2 10 ^3/uL Nucleated Red Blood Cells 0.2 % Creatinine 0.91 0.700-1.30 mg/dL Glomerular Filtration Rate Calc 98 >90 mL/min Vancomycin Level Trough 14.7 H 5-10 ug/mL Urine Color Straw Yellow Urine Clarity Clear Clear Urine pH 7.0 5.0-9.0 Urine Specific [place] 1.006 1.001-1.035 Urine Protein Negative Negative Urine Ketones Negative Negative Urine Blood Negative Negative /uL Urine Nitrite Negative Negative Urine Bilirubin Negative Negative Urine Urobilinogen Normal Negative mg/dL Urine Leukocyte Esterase Trace Negative /uL Urine RBC 1 0 - 3 /hpf Urine Microscopic WBC 2 0-3 /HPF Urine Squamous Epithelial Cells Few <5 /hpf Urine Bacteria None seen None Seen /hpf Urine Glucose Normal Normal mg/dL Urine Opiates Screen Neg NEGATIVE Urine Fentanyl Screen Neg NEGATIVE Urine Barbiturates Screen Neg NEGATIVE Urine Phencyclidine Screen Neg NEGATIVE Urine Amphetamines Screen Neg NEGATIVE Urine Benzodiazepines Screen Neg NEGATIVE Urine Cocaine Screen Neg NEGATIVE Urine Cannabinoids Screen Pos NEGATIVE Sodium Level 138 136-145 mmol/L Potassium Level 4.0 3.5-5.1 mmol/L Chloride Level 103 98-107 mmol/L Carbon Dioxide Level 27 20-31 mmol/L Anion Gap 8 5-15 Blood Urea Nitrogen 8 L 9-23 mg/dL BUN/Creatinine Ratio 11.4 10.0-20.0 Serum Glucose 86 74-106 mg/dL Lactic Acid Level 1.2 0.4-2.0 mmol/L Calcium Level 9.2 8.7-10.4 mg/dL Total Bilirubin 0.3 0.2-1.0 mg/dL Aspartate Amino Transferase (AST) 16 13-40 U/L Alanine Aminotransferase (ALT) 15 7-40 U/L Alkaline Phosphatase 78 46-116 U/L Total Protein 6.8 5.7-8.2 g/dL Albumin 3.7 3.2-4.8 g/dL Erythrocyte Sedimentation Rate 43 H 0-20 mm/hr B-Type Natriuretic Peptide 221.69 0-100 pg/mL Test 04/22/25 21:35 Range/Units D-Dimer, Quantitative 6.72 H 0.0-0.49 mg/L FEU Magnesium Level 2.0 1.6-2.6 mg/dL C-Reactive Protein High Sensitivity 8.67 H <1.0 mg/dL Microbiology Date/Time Source Procedure Growth Status 04/23/25 01:25 Nose MRSA Screen - Final Complete 04/22/25 22:25 Blood Blood Culture - Preliminary NO GROWTH AFTER 72 HOURS OF INCUBATION. Resulted Problems(with codes): (1) Ulcer of right lower leg (2) Cellulitis Plan/Recommendation ASSESSMENT AND PLAN: ID Problem List: -Chronic right lateral ankle ulcer with acute cellulitis; superficial wound culture (04/22) with Proteus spp. and Enterococcus faecalis (both susceptible to amoxicillin/clavulanate and amoxicillin) -Severe peripheral arterial disease (PAD) with multilevel occlusions; occluded right femoral-popliteal bypass graft; limited runoff bilaterally -Left lower extremity nonocclusive DVT (distal femoral and popliteal veins) -CHF; CAD s/p stent; prior VA; hypertension -Tobacco use disorder; alcohol use; cannabis use; history of methamphetamine use (quit ~3 years ago) -Mild lactic acidosis on admission (lactate 2.8 mmol/L) Assessment: This is a 59-year-old male with CHF, CAD s/p stent, prior VA, HTN, PAD, and prior LE bypass who presents with a chronic right lateral ankle ulcer complicated by recent swelling, erythema, severe pain, and yellow drainage. Admission lactate 2.8 mmol/L; WBC 8.4 K/L. Imaging of the right foot/ankle shows no osteomyelitis or drainable collection; subcutaneous stranding and soft tissue density with edema extending into the midfoot/forefoot. Arterial studies demonstrate severe PAD with occlusions and an occluded right fem-pop bypass graft; venous Dopplers show nonocclusive left femoral/popliteal DVT. Superficial wound culture (04/22) grew Proteus spp. and E. faecalis, both susceptible to Augmentin/amoxicillin. Clinical course without fevers; WBC stable; platelets rising. Plan: -Antibiotics: -De-escalate inpatient antibiotics to ampicillin/sulbactam (Unasyn); discontinue vancomycin and ceftriaxone. -Transition to amoxicillin/clavulanate 875/125 mg PO BID to complete a 14-day course; consider extending to 21 days given extensive PAD. -No IV antibiotics recommended at this time. -Wound care: -Continue local wound care with [facility]. -Wound care consult for ongoing management. -No early wound closure anticipated. -Vascular optimization: -Outpatient vascular surgery follow-up for revascularization options (bypass graft/stenting and occlusion management) to optimize perfusion for wound healing. -Diagnostics: -Check hemoglobin A1c to evaluate for contributory diabetes. -Follow-up: -Infectious Disease follow-up in 3 weeks to reassess and determine if additional antibiotics are needed. Isolation Precautions: standard Assessment and plan were discussed as written above. Plan is subject to change pending incorporation of new information/diagnostics. Infectious Disease will continue to follow. HISTORY: The patient's chart and medications were reviewed in detail. The patient was seen and examined. Osiel is a 59-year-old male with a history of CHF, DVT, VA, HTN, CAD s/p stent, PAD (multiple prior surgeries), who presents with a draining right ankle wound. Chronic ulcer present for ~3 years; initially healed but recurred after a metal laceration injury. Over the past 7 days, the right ankle became swollen, scabbed, and started draining yellow fluid; throbbing pain with erythema, pain rated 10/10. No notable family history reported. Lives in [place]. Smokes ~1 PPD for 44 years; currently drinks a few shots of vodka throughout the week; uses marijuana; prior methamphetamine use, quit ~3 years ago. Denies IV drug use. No known drug allergies. On admission labs notable for lactate 2.8 mmol/L; WBC 8.4 K/L. Imaging without osteomyelitis; significant PAD on vascular studies. Superficial wound culture (04/22) grew Proteus spp. and Enterococcus faecalis, both Augmentin/amoxicillin susceptible. REVIEW OF SYSTEMS: -Constitutional: Not discussed in transcript. -HEENT: Not discussed in transcript. -Respiratory: Not discussed in transcript. -Cardiovascular: Not discussed in transcript. -Gastrointestinal: Not discussed in transcript. -Genitourinary: Not discussed in transcript. -Musculoskeletal: Right ankle pain and swelling reported. -Skin: Draining right ankle ulcer with surrounding erythema reported. -Neurological: Not discussed in transcript. -Psychiatric: Not discussed in transcript. A complete 10-system ROS was not documented in the transcript; pertinent posit fei are noted above. PAST MEDICAL HISTORY: -Congestive heart failure (CHF) -Deep vein thrombosis (history; current left distal femoral/popliteal nonocclusive thrombus on Doppler) -Myocardial infarction (VA) -Hypertension -Coronary artery disease (CAD), status post stent -Peripheral arterial disease (PAD) -Chronic right ankle ulcer PAST SURGICAL HISTORY: -Multiple surgeries to the left knee -Left shoulder rotator cuff surgery HOME MEDICATIONS: -Clopidogrel (Plavix) dose/frequency not specified -Losartan dose not specified -Anticoagulant: Eliquis (apixaban) vs. Lovenox (enoxaparin) transcript unclear/ambiguous -Inpatient: Started on vancomycin and ceftriaxone; recommendation to de-escalate to Unasyn ALLERGIES: -No known drug allergies FAMILY HISTORY: -No notable family history reported SOCIAL HISTORY: -Residence: [place] -Tobacco: ~1 pack/day for 44 years -Alcohol: A few shots of vodka throughout the week -Drugs: Marijuana; prior methamphetamine use (quit ~3 years ago) -IV drug use: Denied OBJECTIVE: Vital Signs on Arrival: -Temp: 98.6 F -BP: 127/96 mmHg -Pulse: 91 bpm -Resp: 21/min -SpO2: 96% on room air Most Recent Vital Signs: -Temp: 97.3 F -BP: 130/85 mmHg -Pulse: 57 bpm -Resp: 16/min (transcript stated eight sixteen) -SpO2: Not clearly documented in transcript (audio incongruent) Admission Weight/BMI: -Not provided in transcript PHYSICAL EXAM: General: NAD Neck: Supple. No masses. HEENT: PERRL. Normal lids and conjunctiva. Moist mucous membranes. Oropharynx without lesions, exudates or excessive erythema. Normal appearance of the external aspects of the nose and ears. Heart: Regular rhythm, normal rate. No murmur. No lower extremity edema. Lungs: Normal respiratory effort. Clear to auscultation bilaterally. No wheezes. No crackles. Abdomen: Soft. Non-tender. Non-distended. No masses or abdominal hernia. Msk: No digital cyanosis. Normal strength and tone in all 4 limbs. Skin: Warm and dry, no rashes. Right lateral ankle ulcer with yellow drainage and surrounding erythema; edema noted extending to midfoot/forefoot per imaging. Neuro: Alert. No facial droop or slurred speech. Extra-ocular movements intact. Sensation intact to soft touch in all 4 limbs. Psych: Appropriate mood. Full affect. Oriented to person, place, time, and situation. LINES: -Not provided in transcript DIAGNOSTIC STUDIES: Available diagnostic studies were reviewed personally. Significant relevant results and findings are outlined below or addressed in the Assessment and Plan above. -Laboratory (on admission unless noted): -Lactic acid: 2.8 mmol/L -WBC: 8.4 K/L -Hemoglobin: 15.5 g/dL -Platelets: 280 K/L -Sodium: 141 mmol/L -BUN: 8 mg/dL -Creatinine: 0.75 mg/dL -WBC stable throughout hospitalization; platelets rising; no fevers reported. -Microbiology: -Superficial wound culture (04/22): Proteus spp. and Enterococcus faecalis; both susceptible to Augmentin and amoxicillin. PERTINENT IMAGING: -Right foot/ankle imaging (modality not explicitly specified in transcript): -No osteomyelitis. Superficial skin/subcutaneous irregularity over distal fibula and lateral malleolus with subcutaneous stranding and confluent soft tissue density. No obvious fluid collection. Edema extends to midfoot and forefoot, predominantly dorsal. -Bilateral lower extremity venous Dopplers: -Left: Nonocclusive thrombus in distal femoral vein and popliteal vein. -Arterial Doppler: -Right: >80% stenosis in deep femoral artery; no flow in right superficial femoral artery, right popliteal artery, or right posterior tibial artery. -Left: 5080% stenosis in deep femoral artery; occlusion of left superficial femoral artery; distal atherosclerotic disease in popliteal artery. -Abdominal/LE angiography: -Occluded right femoral-popliteal bypass graft with two-vessel runoff; occluded popliteal-tibial segment. Left SFA occluded with [id number] popliteal involvement; three-vessel runoff pattern with distal peroneal opacification. CONSULTATIONS: -Vascular Surgery (Dr. Blanton): Continue wound care with [facility] and wound care consultation. Recommend optimizing blood flow first; surgical intervention to be considered as outpatient. No early wound closure anticipated. FOLLOW-UP: -Infectious Disease clinic in 3 weeks. -Outpatient vascular surgery for revascularization planning. Plan discussed with: Patient DIAMANTE PRAKASH MD Apr 27, 2025 14:20
--- NOTE | 2025-04-27 14:24 | DVHPN2 ---
Consult Progress Note Date Seen: Apr 28, 2025 Subjective Patient reports: Feels better Objective vital signs Vital Sign Date Time Temp Pulse Resp B/P (MAP) Pulse Ox O2 Delivery O2 Flow Rate FiO2 04/27/25 13:23 64 14 137/85 04/27/25 12:34 97.8 95 97.8 04/27/25 07:49 Room Air* 0 21 Total Intake and Output 04/26/25 04/26/25 04/27/25 15:00 23:00 07:00 Intake Total 50 ml 1117 ml 1210 ml Output Total 1100 ml Balance 50 ml 1117 ml 110 ml medications Current Medications Medications Dose Ordered Sig/Bro Route Start Time Stop Time Status Last Admin Dose Admin Acetaminophen/ Hydrocodone Bitart 1 tab Q4HP PRN PO 04/22/25 23:45 04/27/25 05:37 Ondansetron HCl 4 mg Q4HP PRN IV 04/22/25 23:45 Acetaminophen 650 mg Q6HP PRN PO 04/22/25 23:45 Ceftriaxone Sodium 50 ml @ 100 mls/hr DAILY@09 IV 04/23/25 09:00 04/27/25 08:54 Vancomycin HCl 0 ml @ 0 mls/hr PER PHARMACY IV 04/22/25 23:45 Clopidogrel Bisulfate 75 mg DAILY PO 04/23/25 10:00 04/27/25 08:54 Losartan Potassium 25 mg DAILY PO 04/23/25 10:00 04/26/25 09:03 Hydromorphone HCl 0.25 mg Q4HPRN PRN IV 04/23/25 00:15 04/27/25 12:32 Apixaban 5 mg BID PO 04/23/25 22:00 04/27/25 08:54 Vancomycin HCl 250 ml @ 250 mls/hr Q12H IV 04/25/25 16:00 04/27/25 04:48 laboratory and microbiology Laboratory Tests 04/27/25 02:49 04/23/25 04:25 Test 04/23/25 04:25 Range/Units Serum Glucose 86 74-106 mg/dL Problem List/Assessment/Plan Problem List/Assessment/Plan ASSESSMENT AND PLAN: ID Problem List: -Chronic right lateral ankle ulcer with acute cellulitis; superficial wound culture (04/22) with Proteus spp. and Enterococcus faecalis (both susceptible to amoxicillin/clavulanate and amoxicillin) -Severe peripheral arterial disease (PAD) with multilevel occlusions; occluded right femoral-popliteal bypass graft; limited runoff bilaterally -Left lower extremity nonocclusive DVT (distal femoral and popliteal veins) -CHF; CAD s/p stent; prior [place]; hypertension -Tobacco use disorder; alcohol use; cannabis use; history of methamphetamine use (quit ~3 years ago) -Mild lactic acidosis on admission (lactate 2.8 mmol/L) Assessment: This is a 59-year-old male with CHF, CAD s/p stent, prior [place], HTN, PAD, and prior LE bypass who presents with a chronic right lateral ankle ulcer complicated by recent swelling, erythema, severe pain, and yellow drainage. Admission lactate 2.8 mmol/L; WBC 8.4 K/L. Imaging of the right foot/ankle shows no osteomyelitis or drainable collection; subcutaneous stranding and soft tissue density with edema extending into the midfoot/forefoot. Arterial studies demonstrate severe PAD with occlusions and an occluded right fem-pop bypass graft; venous Dopplers show nonocclusive left femoral/popliteal DVT. Superficial wound culture (04/22) grew Proteus spp. and E. faecalis, both susceptible to Augmentin/amoxicillin. Clinical course without fevers; WBC stable; platelets rising. Plan: -Antibiotics: -De-escalate inpatient antibiotics to ampicillin/sulbactam (Unasyn); discontinue vancomycin and ceftriaxone. -Transition to amoxicillin/clavulanate 875/125 mg PO BID to complete a 14-day course; consider extending to 21 days given extensive PAD. -No IV antibiotics recommended at this time. -Wound care: -Continue local wound care with [facility]. -Wound care consult for ongoing management. -No early wound closure anticipated. -Vascular optimization: -Outpatient vascular surgery follow-up for revascularization options (bypass graft/stenting and occlusion management) to optimize perfusion for wound healing. -Diagnostics: -Check hemoglobin A1c to evaluate for contributory diabetes. -Follow-up: -Infectious Disease follow-up in 3 weeks to reassess and determine if additional antibiotics are needed. Isolation Precautions: standard Assessment and plan were discussed as written above. Plan is subject to change pending incorporation of new information/diagnostics. Infectious Disease will continue to follow. ++++++++++++++++++++++++++++++++++++++++++++++++++++++++++++++++++++++++++++++++ PHYSICAL EXAM: General: NAD Neck: Supple. No masses. HEENT: PERRL. Normal lids and conjunctiva. Moist mucous membranes. Oropharynx without lesions, exudates or excessive erythema. Normal appearance of the external aspects of the nose and ears. Heart: Regular rhythm, normal rate. No murmur. No lower extremity edema. Lungs: Normal respiratory effort. Clear to auscultation bilaterally. No wheezes. No crackles. Abdomen: Soft. Non-tender. Non-distended. No masses or abdominal hernia. Msk: No digital cyanosis. Normal strength and tone in all 4 limbs. Skin: Warm and dry, no rashes. Right lateral ankle ulcer with yellow drainage and surrounding erythema; edema noted extending to midfoot/forefoot per imaging. Neuro: Alert. No facial droop or slurred speech. Extra-ocular movements intact. Sensation intact to soft touch in all 4 limbs. Psych: Appropriate mood. Full affect. Oriented to person, place, time, and situation. Plan discussed with: Patient Dietary Evaluation Review Comments: Nutrition Recommendation: 1) Yehuda 1 pk BID 2) Monitor PO intake, lab values, weight trend, and I/O Expected Outcomes/Goals: Wound to improve FU 3-5 days DIAMANTE PRAKASH MD Apr 27, 2025 14:24
[2025-04-27] MEDS ORDERED: AUG875T PO (15:14)
[2025-04-27] MEDS ORDERED: HYDR-4902 PO (15:15)
[2025-04-27] MEDS ORDERED: NALO4SPR2 (15:15)
--- NOTE | 2025-04-27 15:21 | DVHDS2 ---
Discharge Summary Date of Admission Apr 22, 2025 at 23:50 Date of Discharge: Apr 27, 2025 Labs/Diagnostic Data: Laboratory Results Test 04/27/25 02:49 04/23/25 08:35 04/23/25 04:25 04/23/25 00:43 White Blood Count 9.1 10^3/uL (4.4-10.8) Red Blood Count 4.91 10^6/uL (4.5-5.90) Hemoglobin 14.8 g/dL (13.5-17.5) Hematocrit 43.3 % (41.0-53.0) Mean Corpuscular Volume 88.1 fL (80.0-100.0) Mean Corpuscular Hemoglobin 30.2 pg (28.0-32.0) Mean Corpuscular Hemoglobin Concent 34.3 g/dL (32.0-36.0) Red Cell Distribution Width 14.7 % (11.8-14.3) Platelet Count 407 10^3/uL (140-450) Mean Platelet Volume 7.9 fL (6.9-10.8) Neutrophils (%) (Auto) 56.3 % (37.0-80.0) Lymphocytes (%) (Auto) 26.7 % (10.0-50.0) Monocytes (%) (Auto) 10.9 % (0.0-12.0) Eosinophils (%) (Auto) 4.9 % (0.0-7.0) Basophils (%) (Auto) 1.2 % (0.0-2.0) Neutrophils # (Auto) 5.1 10 ^3/uL (1.6-8.6) Lymphocytes # (Auto) 2.4 10 ^3/uL (0.4-5.4) Monocytes # (Auto) 1.0 10 ^3/uL (0-1.3) Eosinophils # (Auto) 0.5 10 ^3/uL (0-0.8) Basophils # (Auto) 0.1 10 ^3/uL (0-0.2) Nucleated Red Blood Cells 0.2 % Creatinine 0.91 mg/dL (0.700-1.30) Glomerular Filtration Rate Calc 98 mL/min (>90) Vancomycin Level Trough 14.7 ug/mL (5-10) Urine Color Straw (Yellow) Urine Clarity Clear (Clear) Urine pH 7.0 (5.0-9.0) Urine Specific [place] 1.006 (1.001-1.035) Urine Protein Negative (Negative) Urine Ketones Negative (Negative) Urine Blood Negative /uL (Negative) Urine Nitrite Negative (Negative) Urine Bilirubin Negative (Negative) Urine Urobilinogen Normal mg/dL (Negative) Urine Leukocyte Esterase Trace /uL (Negative) Urine RBC 1 /hpf (0 - 3) Urine Microscopic WBC 2 /HPF (0-3) Urine Squamous Epithelial Cells Few /hpf (<5) Urine Bacteria None seen /hpf (None Seen) Urine Glucose Normal mg/dL (Normal) Urine Opiates Screen Neg (NEGATIVE) Urine Fentanyl Screen Neg (NEGATIVE) Urine Barbiturates Screen Neg (NEGATIVE) Urine Phencyclidine Screen Neg (NEGATIVE) Urine Amphetamines Screen Neg (NEGATIVE) Urine Benzodiazepines Screen Neg (NEGATIVE) Urine Cocaine Screen Neg (NEGATIVE) Urine Cannabinoids Screen Pos (NEGATIVE) Sodium Level 138 mmol/L (136-145) Potassium Level 4.0 mmol/L (3.5-5.1) Chloride Level 103 mmol/L (98-107) Carbon Dioxide Level 27 mmol/L (20-31) Anion Gap 8 (5-15) Blood Urea Nitrogen 8 mg/dL (9-23) BUN/Creatinine Ratio 11.4 (10.0-20.0) Serum Glucose 86 mg/dL (74-106) Lactic Acid Level 1.2 mmol/L (0.4-2.0) Calcium Level 9.2 mg/dL (8.7-10.4) Total Bilirubin 0.3 mg/dL (0.2-1.0) Aspartate Amino Transferase (AST) 16 U/L (13-40) Alanine Aminotransferase (ALT) 15 U/L (7-40) Alkaline Phosphatase 78 U/L (46-116) Total Protein 6.8 g/dL (5.7-8.2) Albumin 3.7 g/dL (3.2-4.8) Erythrocyte Sedimentation Rate 43 mm/hr (0-20) B-Type Natriuretic Peptide 221.69 pg/mL (0-100) Test 04/22/25 21:35 D-Dimer, Quantitative 6.72 mg/L FEU (0.0-0.49) Magnesium Level 2.0 mg/dL (1.6-2.6) C-Reactive Protein High Sensitivity 8.67 mg/dL (<1.0) Other Laboratory Tests 04/27/25 02:49 04/23/25 04:25 Brief Hx & Hospital Course: 59-year-old male with a known history of hypertension, coronary artery disease status post PCI, history of DVT currently on Eliquis presented to the hospital with a right ankle wound which started three years ago, worsening for last few days found to have right ankle cellulitis with the open wound. Patient was seen by infectious disease. Patient was on IV antibiotics which was switched to p.o. antibiotics patient is being discharged under stable condition Condition at Discharge: Stable Final Diagnosis/Problems List 59-year-old male with a known history of hypertension, coronary artery disease status post PCI, history of DVT currently on Eliquis presented to the hospital with a right ankle wound which started three years ago, worsening for last few days found to have 1. Right ankle cellulitis with the open wound 2. Hypertension 3. Known CAD status post PCI 4. Congestive heart failure with systolic dysfunction currently compensated 5. History of DVT currently on Eliquis 6. [id number] peripheral vascular disease bilateral lower extremity Discharge Disposition: Home SNF Discharge Will this Physician continue t: No Discharge Instruct/Medications Diet: Cardiac 2g Na,low cholest Activity: See Comment Activity comment: No driving, no signing of legal documents, no planning on machinery while on narcotics Follow Up/Referral: Follow up with the PCP follow up with Infectious Disease doctor Parish Han in 1-2 weeks Medications: As prescribed and reconciled New Medications: Amoxicillin & Pot Clavulanate (Augmentin Tablet) 875 Mg Tb 875 MG PO BID for 21 Days, #42 TAB Hydrocodone-Acetaminophen (Hydrocodone Bitartrate/AC 5-325 mg) 1 Tab Tab 1 TAB PO Q8HP PRN, #14 TAB Naloxone HCl (Narcan) 4 Mg/0.1 Ml Spr 4 MG NA EM PHYSICIAN, #2 SPRAY Continued Medications: Apixaban Base (Eliquis) 2.5 Mg Tab 2.5 MG PO BID, TAB Clopidogrel Bisulfate (Plavix) 75 Mg Tab 1 TAB PO DAILY, #90 TAB 1 Refill Losartan Potassium (Cozaar) 25 Mg Tab 1 TAB PO DAILY, #30 TAB 5 Refills Mupirocin Calcium (Topical) (Mupirocin) 2 % Cre 2 % EX BID for 20 Days, #30 CRE 3 Refills Discontinued Medications: Doxycycline Hyclate (Doxycycline Hyclate) 100 Mg Tab 1 TAB PO BID for 10 Days, #20 TAB Scheduled Amoxicillin & Pot Clavulanate (Augmentin Tablet), 875 MG PO BID Apixaban Base (Eliquis), 2.5 MG PO BID, (Reported) Clopidogrel Bisulfate (Plavix), 1 TAB PO DAILY, (Reported) Losartan Potassium (Cozaar), 1 TAB PO DAILY, (Reported) Mupirocin Calcium (Topical) (Mupirocin), 2 % EX BID Naloxone HCl (Narcan), 4 MG NA EM PHYSICIAN Scheduled PRN Hydrocodone-Acetaminophen (Hydrocodone Bitartrate/AC 5-325 mg), 1 TAB PO Q8HP PRN Discontinued Medications Doxycycline Hyclate (Doxycycline Hyclate), 1 TAB PO BID Discharge Statement: "Patient was advised to return to the ER or call 911 if any headaches, dizziness, shortness of breath, chest pain, abdominal pain, bleeding, fevers, or worsening of medical condition. Patient was counseled about treatment plan, medications, possible side effects, patientverbalized understanding. All questions were answered to the best of my ability. This discharge took greater then 30 minutes in planning, reviewing documentation, counseling the patient, and discussing with other team members." ASSESSMENT ASSESSMENT Assessment 59-year-old male with a known history of hypertension, coronary artery disease status post PCI, history of DVT currently on Eliquis presented to the hospital with a right ankle wound which started three years ago, worsening for last few days found to have 1. Right ankle cellulitis with the open wound 2. Hypertension 3. Known CAD status post PCI 4. Congestive heart failure with systolic dysfunction currently compensated 5. History of DVT currently on Eliquis 6. [id number] peripheral vascular disease bilateral lower extremity Date of Service: Apr 27, 2025 Billing Provider: FLORENCIO MALIN MD Common Visit Codes: 46450-DOL/OBS DISCH DAY >30min FLORENCIO MALIN MD Apr 27, 2025 15:21
[2025-04-27 16:49] VITALS: BP 125/75; PULSE 70; RESP 16; TEMP 98; O2SAT 93
== END 2025-04-27 19:30 | disposition home or self-care (01) | DRG 383 ==
LOC: ER 19:47 → OVERFLOW 23:50 → EAST 04-23 17:56
PROVIDERS: ADMIT Internal Medicine; ATTEND Internal Medicine
DX: L03.115 Cellulitis of right lower limb (principal); E87.20 Acidosis, unspecified; T82.898A Other specified complication of vascular prosthetic devices, implants and grafts, initial encounter; I82.412 Acute embolism and thrombosis of left femoral vein; I82.432 Acute embolism and thrombosis of left popliteal vein; B95.2 Enterococcus as the cause of diseases classified elsewhere; L97.319 Non-pressure chronic ulcer of right ankle with unspecified severity; B96.4 Proteus (mirabilis) (morganii) as the cause of diseases classified elsewhere; Z79.02 Long term (current) use of antithrombotics/antiplatelets; Z79.01 Long term (current) use of anticoagulants; I11.0 Hypertensive heart disease with heart failure; I73.9 Peripheral vascular disease, unspecified; F19.10 Other psychoactive substance abuse, uncomplicated; I50.42 Chronic combined systolic (congestive) and diastolic (congestive) heart failure; I25.10 Atherosclerotic heart disease of native coronary artery without angina pectoris; F17.210 Nicotine dependence, cigarettes, uncomplicated; F12.10 Cannabis abuse, uncomplicated; Z95.5 Presence of coronary angioplasty implant and graft; Z86.718 Personal history of other venous thrombosis and embolism; Z79.899 Other long term (current) drug therapy; I25.2 Old myocardial infarction; Y83.2 Surgical operation with anastomosis, bypass or graft as the cause of abnormal reaction of the patient, or of later complication, without mention of misadventure at the time of the procedure; Y92.89 Other specified places as the place of occurrence of the external cause
CPT/HCPCS: 36415; 71045; 73700; 75635; 80053; 80202; 80307; 81001; 82565; 83605; 83735; 83880; 85025; 85379; 85652; 86141; 87040; 87077; 87081; 87186; 87205; 93306; 93925; 93970; 96365; G0378; J3490